=== PATIENT | male | born 1970 | race Caucasian/White ===

== ENCOUNTER 2020-03-22 18:19 | Inpatient (IN) | payer BC, OTHER, SELFPAY ==
[2020-03-22] MEDS ORDERED: Cefepime 2 GM VIAL ONE (18:46)
[2020-03-22] MEDS ORDERED: Sodium Chloride 0.9% 100 ML ONE (18:46)
--- NOTE | 2020-03-22 18:56 | RAD ---
XR Foot Rt 3 View STANDARD INDICATION: Redness and noted wound to the toe COMPARISON: None. FINDINGS: Bones: There is small cortical lucency involving the dorsal medial aspect of the right great toe dist al phalangeal base suspicious for early changes of osteomyelitis. This is adjacent to a soft tissue wound. Joints: Joints spaces appear preserved. Lisfranc alignment: Lisfranc alignment appears within normal limits. Soft tissues: There is soft tissue swelling the right great toe. There is a wound overlying the media l and dorsal aspect of the right great toe without a radiopaque foreign body. IMPRESSION: Cortical osteolysis involving the dorsal medial aspect of the great toe distal phalangeal base suspicious for changes of early osteomyelitis. This is adjacent to a soft tissue wound of the medial dorsal aspect of the right great toe. There is diffuse soft tissue swelling of the right great toe.
[2020-03-22 19:01] LABS: #Eosinphils 0.1 thou/uL (0.0-0.7); #Lymphocytes 1.6 thou/uL (1.20-3.40); #Monocytes 1.1 thou/uL (0.11-0.59); #Neutrophils 9.4 thou/uL (1.40-6.50); %Basophils 0.1 % (0.0-1.0); %Eosinophils 0.5 % (0.0-10.0); %Lymphocytes 13.3 % (21.0-51.0); %Monocytes 8.7 % (0.0-10.0); %Neutrophils 77.4 % (42.0-75.0); Hemoglobin 16.6 g/dL (14.0-18.0); Mean Corpuscular HGB CONC 35.8 g/dL (32.0-36.0); Mean Corpuscular Hemoglobin 31.7 pg (27.0-31.0); Mean Corpuscular Volume 88.7 fL (78.0-98.0); Mean Platelet Volume 7.3 fL (7.4-10.4); Platelet Count 272 thou/uL (130-400); Red Blood Cell (RBC) Count 5.23 mill/uL (4.70-6.10); White Blood Cell (WBC) Count 12.2 thou/uL (4.8-10.8)
[2020-03-22 19:22] LABS: ALT (SGPT) 21 U/L (8-55); AST (SGOT) 19 U/L (5-34); Albumin 3.9 g/dL (3.5-5.0); Alkaline Phosphatase 79 U/L (40-110); Anion Gap 16 mmol/L (10-20); BUN (Urea Nitrogen) 14 mg/dL (8.9-20.6); Bilirubin, Total 0.4 mg/dL (0.2-1.2); Calc. Creatinine Clearance 0 mL/min (70-130); Calcium 9.8 mg/dL (7.8-10.44); Carbon Dioxide 22 mmol/L (22-29); Chloride 93 mmol/L (98-107); Estimated GFR-MDRD 79; Globulin 4.2 g/dL (2.4-3.5); Glucose 291 mg/dL (70-105); Potassium 4.3 mmol/L (3.5-5.1); Protein, Total 8.1 g/dL (6.0-8.3); Sodium 127 mmol/L (136-145)
[2020-03-22] MEDS ORDERED: Vancomycin 1 GM/200 ML BAG ONE (19:26)
[2020-03-22 19:38] LABS: Bilirubin Negative (Negative); Blood, Urine Negative (Negative); Clarity Clear (Clear); Glucose, Urine (Dipstick) Greater than 1000 mg/dL (Negative); Ketone, Urine Trace mg/dL (Negative); Leukocyte Negative Leu/uL (Negative); Nitrite Negative (Negative); Protein, Urine (Dipstick) Negative (Neg-Trace); Specific Gravity, Urine 1.021 (1.002-1.036); Urobilinogen Normal mg/dL (Less than 2); pH, Urine 5.5 (5.0-9.0)
[2020-03-22] MEDS ORDERED: Acetaminophen 650 MG Suppository PR PRN (19:51)
[2020-03-22] MEDS ORDERED: HYDROcodone/Acetaminophen 7.5/325 mg Tablet PO PRN ×2 (19:51)
[2020-03-22] MEDS ORDERED: Acetaminophen 325 MG TAB PO PRN (19:51)
[2020-03-22] MEDS ORDERED: Calcium Carbonate 500 MG ChewTAB PO PRN (19:51)
--- NOTE | 2020-03-22 20:07 | PDOC.HHP ---
Hospitalist HPI - History of Present Illness dizziness wekaness History of Present Illness: Case of an 49y/o male with apparent no pmx who comes to hospital due to weakness and dizzyness patient states he was on his usual state of health until yesterday when he started with the symptoms, which where also accompanied with nausea vomiting and chills. patient also with an obvious soft tissues infection of his right foot which is the likely source of his symptoms. he states that little over a week he notice what he though was a bite that has been worsening since then, he refers he trated with water soap and topical abx but kept getting worse. denies fever dysuria diarrhe cough or sob Hospitalist ROS - Review of Systems All other systems reviewed; all pertinent +/- noted in HPI/Subj Hospitalist History - Past Surgical History Other Surgical History: b/l arm repair after accident - Family History Family History: reports: cancer, diabetes mellitus - Social History Smoking Status: Current every day smoker Alcohol: reports: Heavy Drugs: reports: marijuana Living Situation: With Family - Exam General Appearance: NAD, awake alert Eye: PERRL, anicteric sclera ENT: normocephalic atraumatic, no oropharyngeal lesions Neck: supple, symmetric, no JVD, no thyromegaly Heart: RRR, no murmur, no gallops, no rubs Respiratory: CTAB, no wheezes, no rales Gastrointestinal: soft, non-tender, non-distended Extremities: no cyanosis, no clubbing, no edema Extremities - other findings: R foot great toe with purulent secretion erythema tender and increase temp Skin: normal turgor, no lesions, no rashes Neurological: cranial nerve grossly intact, normal sensation to touch Musculoskeletal: normal tone, normal strength, no muscle wasting Psychiatric: normal affect, normal behavior, A&O x 3 Hospitalist Results - Labs Result Diagrams: 03/22/20 18:46 03/22/20 18:46 Lab results: WBC 12.2 thou/uL (4.8-10.8) H 03/22/20 18:46 Hgb 16.6 g/dL (14.0-18.0) 03/22/20 18:46 Hct 46.3 % (42.0-52.0) 03/22/20 18:46 MCV 88.7 fL (78.0-98.0) 03/22/20 18:46 Plt Count 272 thou/uL (130-400) 03/22/20 18:46 Neutrophils % 77.4 % (42.0-75.0) H 03/22/20 18:46 ESR Westergren 59 mm/hr (Less than 20) H 03/22/20 18:46 Sodium 127 mmol/L (136-145) L 03/22/20 18:46 Potassium 4.3 mmol/L (3.5-5.1) 03/22/20 18:46 Chloride 93 mmol/L (98-107) L 03/22/20 18:46 Carbon Dioxide 22 mmol/L (22-29) 03/22/20 18:46 BUN 14 mg/dL (8.9-20.6) 03/22/20 18:46 Creatinine 1.00 mg/dL (0.7-1.3) 03/22/20 18:46 Glucose 291 mg/dL (70-105) H 03/22/20 18:46 Lactic Acid 1.9 mmol/L (0.5-2.2) 03/22/20 18:46 Calcium 9.8 mg/dL (7.8-10.44) 03/22/20 18:46 Total Bilirubin 0.4 mg/dL (0.2-1.2) 03/22/20 18:46 AST 19 U/L (5-34) 03/22/20 18:46 ALT 21 U/L (8-55) 03/22/20 18:46 Alkaline Phosphatase 79 U/L (40-110) 03/22/20 18:46 C-Reactive Protein 7.41 mg/dL (= or < 0.5) H 03/22/20 18:46 Serum Total Protein 8.1 g/dL (6.0-8.3) 03/22/20 18:46 Albumin 3.9 g/dL (3.5-5.0) 03/22/20 18:46 Urine Ketones Trace mg/dL (Negative) A 03/22/20 19:16 Urine Blood Negative (Negative) 03/22/20 19:16 Urine Nitrite Negative (Negative) 03/22/20 19:16 Ur Leukocyte Esterase Negative Idalmis/uL (Negative) 03/22/20 19:16 Hospitalist H&P A/P - Problem (1) Cellulitis of great toe, right Code(s): L03.031 - CELLULITIS OF RIGHT TOE Status: Acute (2) Elevated blood pressure Code(s): I10 - ESSENTIAL (PRIMARY) HYPERTENSION Status: Acute (3) Hyperglycemia Code(s): R73.9 - HYPERGLYCEMIA, UNSPECIFIED Status: Acute - Plan Plan: 49y/o male who reports no pmhx who present with r toe cellulitis and possible OM R toe cellulitis - significant toe cellulitis - started on cefepimen + vanc - foot xr suggestive of OM, will get MRI - ID consulted - podiatry consulted - continue ivfs - pain management hyperglycemia - likely has unDx DM - sugars in the 300s likely has considerable insulin resistance - will order ah1c, lipid panel - long acting insulin - aac+ ss - consider starting statin if DM is confirmed htn - blood pressure in the 170s, likely undx htn will start lisinopril and amlodipine alcohol abuse - ase protocol smoker -advised to quit n/v - symptomatic tx prn
[2020-03-22] MEDS ORDERED: Lorazepam 2 MG/ML VIAL SLOW IVP PRN (21:48)
[2020-03-22] MEDS ORDERED: Thiamine HCl 200 MG/2 ML VIAL IM SCH (22:00)
[2020-03-22] MEDS ORDERED: Dextrose 5% in Water 1,000 ML IV PRN (22:11)
[2020-03-22] MEDS ORDERED: Dextrose 50% Abboject 50 ML SYRINGE SLOW IVP PRN (22:11)
[2020-03-22] MEDS: Sodium Chloride 0.9% 1,000 ML IV SCH (22:25)
[2020-03-22] MEDS ORDERED: Insulin Glargine 10 UNITS in Pre-Filled Syringe 1 EACH SC SCH (22:45)
[2020-03-22 22:52] VITALS: BMI 28.3
[2020-03-22] MEDS: HumaLOG 300 UNITS/3 ML VIAL SC PRN (23:25)
[2020-03-23] MEDS: Vancomycin HCl 1.25 GM in Sodium Chloride 0.9% 250 ML 250 ML IVPB SCH ×2 (05:34→17:27)
[2020-03-23] MEDS: HumaLOG 300 UNITS/3 ML VIAL SC PRN ×3 (05:38→20:12)
[2020-03-23] MEDS ORDERED: Cefepime 2 GM in Sodium Chloride 0.9% 100 ML IVPB SCH (06:00)
[2020-03-23 07:01] LABS: Band 4 % (5-11); Eosinophils 2 % (0-10); Hemoglobin 14.8 g/dL (14.0-18.0); Lymphocytes 20 % (21-51); MDiff Complete? YES; Mean Corpuscular Hemoglobin 31.2 pg (27.0-31.0); Mean Corpuscular Volume 89.2 fL (78.0-98.0); Mean Platelet Volume 7.1 fL (7.4-10.4); Monocytes 11 % (0-10); Neutrophil 58 % (42-75); Platelet Count 230 thou/uL (130-400); Platelet Morphology Comment Appears Adequate; RBC Distribution Width 11.9 % (11.5-14.5); Reactive Lymphocytes 4 % (0-10); Red Blood Cell (RBC) Count 4.75 mill/uL (4.70-6.10)
[2020-03-23 07:11] LABS: Hemoglobin A1c 9.2 % (4.0-6.0)
[2020-03-23 07:15] LABS: ALT (SGPT) 19 U/L (8-55); AST (SGOT) 18 U/L (5-34); Albumin 3.4 g/dL (3.5-5.0); Alkaline Phosphatase 65 U/L (40-110); Anion Gap 15 mmol/L (10-20); BUN (Urea Nitrogen) 9 mg/dL (8.9-20.6); Bilirubin, Total 0.4 mg/dL (0.2-1.2); Calc. Creatinine Clearance 129 mL/min (70-130); Carbon Dioxide 20 mmol/L (22-29); Cardiac Risk 4.6 (Less than 4.5); Chloride 101 mmol/L (98-107); Cholesterol 133 mg/dl (< 200 Desired); Estimated GFR-MDRD Greater than 90; Globulin 3.4 g/dL (2.4-3.5); Glucose 167 mg/dL (70-105); HDL Cholesterol 29 mg/dL (>60 Neg Risk); LDL Cholesterol, Calculated 77 mg/dL; Potassium 4.2 mmol/L (3.5-5.1); Protein, Total 6.8 g/dL (6.0-8.3); Sodium 132 mmol/L (136-145); Triglycerides 134 mg/dL (Less than 150)
[2020-03-23] MEDS: Sodium Chloride 0.9% 1,000 ML IV SCH ×2 (09:16→17:14)
[2020-03-23] MEDS: Amlodipine 5 MG TAB PO SCH (09:17)
[2020-03-23] MEDS: Enoxaparin Sodium 40 MG/0.4 ML SYRINGE SC SCH (09:17)
[2020-03-23] MEDS: Folic Acid 1 MG TAB PO SCH (09:18)
[2020-03-23] MEDS: Multivitamin W/ Minerals 1 TAB PO SCH (09:18)
[2020-03-23] MEDS: Magnesium Oxide 400 MG TAB PO SCH (09:18)
[2020-03-23] MEDS: Lisinopril 10 MG TAB PO SCH (09:18)
[2020-03-23] MEDS: Thiamine 100 MG TAB PO SCH (09:18)
[2020-03-23] MEDS: Piperacillin/Tazobactam 3.375 GM in Sodium Chloride 0.9% 100 ML IVPB SCH ×3 (11:45→23:28)
--- NOTE | 2020-03-23 15:04 | PDOC.HOSPP ---
- Subjective Encounter Date: 03/23/20 Encounter Time: 10:00 Subjective: no pain in his right foot, is able to move his foot says he drinks 6 pack beer daily no fever, is awake and oriented this morning - Objective Vital Signs & Weight: Vital Signs (12 hours) Temp Pulse Resp BP BP Pulse Ox 03/23/20 12:00 142/81 H 03/23/20 08:00 146/83 H 95 03/23/20 07:24 98.2 F 75 18 146/83 H 95 03/23/20 04:00 97.9 F 76 20 137/83 137/83 98 Weight Admit Weight 175 lb 9.6 oz Weight 175 lb 9.6 oz Result Diagrams: 03/23/20 06:04 03/23/20 06:04 Additional Labs: Accuchecks 03/23/20 03/23/20 03/22/20 12:13 04:50 22:33 POC Glucose 206 H 187 H 222 H Hospitalist ROS - Medication Medications: Active Medications Generic Name Dose Route Start Last Admin Trade Name Freq PRN Reason Stop Dose Admin Acetaminophen 650 mg 03/22/20 19:51 03/22/20 22:27 Acetaminophen 325 Mg Tab PO 650 mg Q4H PRN Administration Headache/Fever/Mild Pain (1-3) Amlodipine Besylate 5 mg 03/23/20 09:00 03/23/20 09:17 Amlodipine 5 Mg Tab PO 5 mg DAILY SADIE Administration Enoxaparin Sodium 40 mg 03/23/20 09:00 03/23/20 09:17 Enoxaparin Sodium 40 Mg/0.4 Ml Syringe SC 40 mg 0900 SADIE Administration Folic Acid 1 mg 03/23/20 09:00 03/23/20 09:18 Folic Acid 1 Mg Tab PO 1 mg DAILY SADIE Administration Sodium Chloride 1,000 mls @ 100 mls/hr 03/22/20 20:00 03/23/20 09:16 Normal Saline 0.9% IV 1,000 mls .Q10H SADIE Administration Vancomycin HCl 1.25 gm/ Sodium 250 mls @ 166.667 mls/hr 03/23/20 06:00 03/23/20 05:34 Chloride IVPB 250 mls 0600,1800 SADIE Administration Piperacillin Sod/Tazobactam 100 mls @ 200 mls/hr 03/23/20 12:00 03/23/20 11:45 Sod 3.375 gm/ Sodium Chloride IVPB 100 mls Q6HR SADIE Administration Insulin Human Lispro 0 units 03/22/20 22:11 03/23/20 12:16 Humalog 300 Units/3 Ml Vial SC 4 unit .MODERATE SLIDING SC PRN Administration Moderate Correctional Scale Insulin Human Lispro 0 units 03/22/20 23:30 03/22/20 23:25 Humalog 300 Units/3 Ml Vial SC 2 unit .BEDTIME SLIDING SC PRN Administration BEDTIME SLIDING SCALE Protocol Iron/Minerals/Multivitamins 1 tab 03/23/20 09:00 03/23/20 09:18 Multivitamin W/ Minerals 1 Tab PO 1 tab DAILY SADIE Administration Lisinopril 10 mg 03/23/20 09:00 03/23/20 09:18 Lisinopril 10 Mg Tab PO 10 mg DAILY SADIE Administration Magnesium Oxide 400 mg 03/23/20 09:00 03/23/20 09:18 Magnesium Oxide 400 Mg Tab PO 400 mg DAILY SADIE Administration Thiamine HCl 100 mg 03/23/20 09:00 03/23/20 09:18 Thiamine 100 Mg Tab PO 100 mg DAILY SADIE Administration - Exam General Appearance: awake alert Eye: PERRL, anicteric sclera ENT: no oropharyngeal lesions, moist mucosa Neck: supple, no JVD Heart: RRR, no murmur Respiratory: no wheezes, no rales, rhonchi Gastrointestinal: soft, non-tender, non-distended, normal bowel sounds Extremities - other findings: right toe has foul smelling ulcer with purulence Neurological: cranial nerve grossly intact, no focal deficits Psychiatric: A&O x 3 Hosp A/P (1) Osteomyelitis of great toe of right foot Code(s): M86.9 - OSTEOMYELITIS, UNSPECIFIED Status: Acute (2) Diabetic ulcer of right foot Code(s): E11.621 - TYPE 2 DIABETES MELLITUS WITH FOOT ULCER; L97.519 - NON-PRS CHRONIC ULCER OTH PRT RIGHT FOOT W UNSP SEVERITY Status: Acute Qualifiers: Diabetic foot ulcer location: toe Diabetes mellitus type: type 2 Non- pressure ulcer stage: with bone involvement without evidence of necrosis Qualified Code(s): E11.621 - Type 2 diabetes mellitus with foot ulcer; L97.516 - Non-pressure chronic ulcer of other part of right foot with bone involvement without evidence of necrosis (3) DM type 2 (diabetes mellitus, type 2) Status: Acute Qualifiers: Diabetes mellitus ldr rn insulin use: without nursing home use (4) HTN (hypertension) Code(s): I10 - ESSENTIAL (PRIMARY) HYPERTENSION Status: Acute Qualifiers: Hypertension type: essential hypertension Qualified Code(s): I10 - Essential (primary) hypertension (5) Alcohol abuse Code(s): F10.10 - ALCOHOL ABUSE, UNCOMPLICATED Status: Chronic (6) Tobacco abuse Code(s): Z72.0 - TOBACCO USE Status: Chronic - Plan is on vanc and zosyn d/w for surg consult, will likely need amp of gr toe/debridement ase protocol for alc abuse contnue iv fluids, lisinopril, lantus and norvasc hemostable now is npo for possible surgery
[2020-03-23] MEDS ORDERED: Magnevist 469MG/ML 20 ML VIAL ONE (15:33)
--- NOTE | 2020-03-23 17:01 | CON ---
DATE OF CONSULTATION: REASON: Right first toe osteomyelitis. HISTORY OF PRESENT ILLNESS: A 49-year-old whom I had seen in the past for right upper extremity inflammatory process and now developed an inflammatory process in the right first toe. 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 There was foul odor noticeable as well, had some chills, general malaise. No headaches and no visual symptoms, sore throat, odynophagia, dysphagia. He knew to be diabetic. He describes as it is as "borderline diabetic." Had some nausea. On arrival, his findings included BP 180/85, pulse 111, temperature 98.9, the saturations were 95% on room air. There is an obvious inflammatory process in right first toe with discoloration, evidence of abscess in the medial aspect, necrosis, foul odor, erythema. MRI shows findings consistent with osteomyelitis at the distal phalanx. The official reading is still pending. Plain films also demonstrate some osteolysis at the distal phalanx. Currently, he is awake and alert. He does not have much sensation in lower extremities. No headaches, visual symptoms, sore throat, odynophagia, dysphagia. No cough, sputum production, or chest pain. No abdominal pain or diarrhea. No genitourinary symptoms. No other joint symptoms. No neurological symptoms. PAST MEDICAL HISTORY: Type 2 diabetes, prior injury to the right upper extremity with fracture which was repaired in the past. FAMILY HISTORY: Cancer, diabetes type 2. SOCIAL HISTORY: Current smoker. He used to drink heavily about 8 beers a day. 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 Lives by himself reportedly. ALLERGIES: NONE. MEDICATIONS: 1. Norvasc. 2. Lovenox. 3. Insulin. 4. Vitamins. 5. Zestril. 6. Zosyn. 7. Vancomycin. PHYSICAL EXAMINATION: VITAL SIGNS: T-max 98.2, BP 140/83, heart rate 75, O2 saturation 95. SKIN: Shows the right first toe with areas of necrosis, medial aspect swelling, evidence of purulence under the skin, foul odor. No lymphadenopathy. HEENT: Ocular movements conjugate. Oral cavity, normal. NECK: Supple. LUNGS: Symmetric, clear breath sounds. HEART: S1, S2, regular rate. No S3, S4. ABDOMEN: Soft, not distended or tender. No ascites. No organomegaly. No bladder distention. EXTREMITIES: No joint inflammatory activity outside the involved area. Pulses are excellent in lower extremities as well as cap refill. Moves extremities equally with no limitations. NEUROLOGIC: Cognitive function, he is awake, alert, oriented. Speech appears to be normal. Recollection normal. LABORATORY DATA: Sodium 132, creatinine 0.77. Liver profile normal. Albumin 3.4. White cell count is 12.2 and 8.0, hemoglobin 14.8, platelets 230, 58% neutrophils, 20% lymphocytes. Urinalysis remarkable for glycosuria as expected. Two sets of blood culture, no growth thus far. IMAGING STUDIES: As described above. ASSESSMENT: Type 2 diabetes, untreated, with neuropathy and ulcer of the medial aspect of the right first toe distal aspect associated with osteomyelitis and necrosis. DISCUSSION: The patient is going to have surgical evaluation and debridement with potential amputation of the toe. Cultures need to be submitted from the specimen and then we can arrange for the outpatient therapy. It is essential to get microbiology information from the specimen so we can properly decide on oral versus IV antimicrobial therapy. Thus far, it has not been shown to be bacteremic. Job ID: [id number]
--- NOTE | 2020-03-23 17:46 | PDOC.GSCN ---
Surgery Consult: HPI - Consult details Date: 03/23/20 Time: 13:15 Reason for consult: wound care History of present illness: 03/23/20 17:44 -year-old male who presented to the emergency department with complaints of dizziness and weakness. He also complained of an ulceration of his right great toe. The patient states that the ulcer has been present, but he just noticed it. He noticed that it is malodorous. It is nontender; however, he does have symptoms of peripheral neuropathy. Of note, the patient reports that he is a early diabetic.He endorses nausea, vomiting, and chills. 03/23/20 17:46 03/23/20 17:47 He was noted to be intoxicated at presentation. Surgery Consult: ROS - Review of Systems All systems: 10 systems reviewed and no additional complaints unless stated below. Constitutional: reports: as per HPI, weakness Surgery Consult: [facility] Past Medical History: diabetes mellitus Alcohol abuse Past Surgical History: bilateral arm surgery after trauma. Specifics unknown. - Past Family History Pertinent family history: Diabetes Cancer - Past Social History Smoking Status: Current every day smoker Alcohol Use: other (Reported to be intoxicated upon presentation and drinks 5+ drinks per day) Drug Use History: none Living Situation: independent Surgery Consult: Exam - Vital signs Vital signs: Vital Signs - Most Recent Temp Pulse Resp BP Pulse Ox 98.9 F 76 18 140/75 98 03/23/20 17:25 03/23/20 17:25 03/23/20 17:25 03/23/20 17:25 03/23/20 17:25 - Physical Exam General: moderate distress (appears in generally poor health), no distress, severe distress, well developed, well nourished ENT: no congestion, no hearing loss, normal mucosa, normal nares, normal pinna Neck: no bruits, no lymphadectomy, no masses, no dorie distention, trachea midline Respiratory: normal expansion, normal respiratory effort Abdomen: soft, tender Integumentary: no abnormal pigmentation, no growths, no rash Neurologic: normal coordination, normal sensation Musculoskeletal: other (1.5cm ulcer in medial aspect of right great toe. Superficial necrosis with minimal discharge. Surrounding erythema seems improved from wound care photos yesterday.) Psychiatric: memory intact, oriented to time, oriented to person, oriented to place, speech is normal Surgery Consult: Meds - Medications Medications: Current Medications Acetaminophen (Acetaminophen 325 Mg Tab) 650 mg PO Q4H PRN PRN Reason: Headache/Fever/Mild Pain (1-3) Last Admin: 03/22/20 22:27 Dose: 650 mg Documented by: Acetaminophen (Acetaminophen 650 Mg Suppository) 650 mg NC Q4H PRN PRN Reason: Headache/Fever/Mild Pain (1-3) Hydrocodone Bitart/Acetaminophen (Hydrocodone/Acetaminophen 7.5/325 Mg Tablet) 1 tab PO Q4H PRN PRN Reason: Moderate Pain (4-6) Hydrocodone Bitart/Acetaminophen (Hydrocodone/Acetaminophen 7.5/325 Mg Tablet) 2 tab PO Q4H PRN PRN Reason: Severe Pain (7-10) Amlodipine Besylate (Amlodipine 5 Mg Tab) 5 mg PO DAILY [facility] Last Admin: 03/23/20 09:17 Dose: 5 mg Documented by: Calcium Carbonate (Calcium Carbonate 500 Mg Chewtab) 1,000 mg PO Q4H PRN PRN Reason: Heartburn or Indigestion Dextrose/Water (Dextrose 50% Abboject 50 Ml Syringe) 25 gm SLOW IVP PRN PRN PRN Reason: Hypoglycemia Enoxaparin Sodium (Enoxaparin Sodium 40 Mg/0.4 Ml Syringe) 40 mg SC 0900 [facility] Last Admin: 03/23/20 09:17 Dose: 40 mg Documented by: Folic Acid (Folic Acid 1 Mg Tab) 1 mg PO DAILY [facility] Last Admin: 03/23/20 09:18 Dose: 1 mg Documented by: Glucagon (Glucagon 1 Mg/Ml Vial) 1 mg IM PRN PRN PRN Reason: Hypoglycemia Sodium Chloride (Normal Saline 0.9%) 1,000 mls @ 100 mls/hr IV .Q10H [facility] Last Admin: 03/23/20 17:14 Dose: 1,000 mls Documented by: Dextrose/Water (D5w) 1,000 mls @ 0 mls/hr IV .Q0M PRN PRN Reason: Hypoglycemia Insulin Glargine 10 units/ (Miscellaneous Medication) 0.1 mls @ 0 mls/hr SC [facility] Vancomycin HCl 1.25 gm/ Sodium (Chloride) 250 mls @ 166.667 mls/hr IVPB 0600,1800 [facility] Last Admin: 03/23/20 17:27 Dose: 250 mls Documented by: Piperacillin Sod/Tazobactam (Sod 3.375 gm/ Sodium Chloride) 100 mls @ 200 mls/hr IVPB Q6HR [facility] Last Admin: 03/23/20 17:14 Dose: 100 mls Documented by: Insulin Human Lispro (Humalog 300 Units/3 Ml Vial) 0 units SC .MODERATE SLIDING SC PRN PRN Reason: Moderate Correctional Scale Last Admin: 03/23/20 12:16 Dose: 4 unit Documented by: Insulin Human Lispro (Humalog 300 Units/3 Ml Vial) 0 units SC .BEDTIME SLIDING SC PRN; Protocol PRN Reason: BEDTIME SLIDING SCALE Last Admin: 03/22/20 23:25 Dose: 2 unit Documented by: Iron/Minerals/Multivitamins (Multivitamin W/ Minerals 1 Tab) 1 tab PO DAILY [facility] Last Admin: 03/23/20 09:18 Dose: 1 tab Documented by: Lisinopril (Lisinopril 10 Mg Tab) 10 mg PO DAILY [facility] Last Admin: 03/23/20 09:18 Dose: 10 mg Documented by: Lorazepam (Lorazepam 2 Mg/Ml Vial) 1 mg SLOW IVP Q4H PRN PRN Reason: Anxiety/Agitation Magnesium Oxide (Magnesium Oxide 400 Mg Tab) 400 mg PO DAILY [facility] Last Admin: 03/23/20 09:18 Dose: 400 mg Documented by: Miscellaneous (Abstinence Symptom Evaluation Orders (Ase)) 1 each FS ONE [facility] Stop: 04/01/20 22:01 Miscellaneous Medication (Pharmacy To Dose Vancomycin) 1 each IVPB PRN PRN PRN Reason: Pharmacy to dose Sodium Chloride (Flush - Normal Saline 10 Ml Syringe) 10 ml IVF PRN PRN PRN Reason: Saline Flush Thiamine HCl (Thiamine 100 Mg Tab) 100 mg PO DAILY [facility] Last Admin: 03/23/20 09:18 Dose: 100 mg Documented by: - Allergies Allergies/Adverse Reactions: Allergies Allergy/AdvReac Type Severity Reaction Status Date / Time No Known Allergies Allergy Verified 03/22/20 22:48 Surgery Consult: Results - Labs Result Diagrams: 03/23/20 06:04 03/23/20 06:04 Lab results: Laboratory Results WBC 8.0 thou/uL (4.8-10.8) 03/23/20 06:04 RBC 4.75 mill/uL (4.70-6.10) 03/23/20 06:04 Hgb 14.8 g/dL (14.0-18.0) 03/23/20 06:04 Hct 42.4 % (42.0-52.0) 03/23/20 06:04 MCV 89.2 fL (78.0-98.0) 03/23/20 06:04 MCH 31.2 pg (27.0-31.0) H 03/23/20 06:04 MCHC 35.0 g/dL (32.0-36.0) 03/23/20 06:04 RDW 11.9 % (11.5-14.5) 03/23/20 06:04 Plt Count 230 thou/uL (130-400) 03/23/20 06:04 MPV 7.1 fL (7.4-10.4) L 03/23/20 06:04 Neutrophils % 77.4 % (42.0-75.0) H 03/22/20 18:46 Neutrophils % (Manual) 58 % (42-75) 03/23/20 06:04 Band Neuts % (Manual) 4 % (5-11) L 03/23/20 06:04 Lymphocytes % 13.3 % (21.0-51.0) L 03/22/20 18:46 Lymphocytes % (Manual) 20 % (21-51) L 03/23/20 06:04 Reactive Lymphs % 4 % (0-10) 03/23/20 06:04 Monocytes % 8.7 % (0.0-10.0) 03/22/20 18:46 Monocytes % (Manual) 11 % (0-10) H 03/23/20 06:04 Eosinophils % 0.5 % (0.0-10.0) 03/22/20 18:46 Eosinophils % (Manual) 2 % (0-10) 03/23/20 06:04 Basophils % 0.1 % (0.0-1.0) 03/22/20 18:46 Basophils % (Manual) 1 % (0-2) 03/23/20 06:04 Neutrophils # 9.4 thou/uL (1.40-6.50) H 03/22/20 18:46 Lymphocytes # 1.6 thou/uL (1.20-3.40) 03/22/20 18:46 Monocytes # 1.1 thou/uL (0.11-0.59) H 03/22/20 18:46 Eosinophils # 0.1 thou/uL (0.0-0.7) 03/22/20 18:46 Basophils # 0.0 thou/uL (0.0-0.2) 03/22/20 18:46 Plt Morphology Comment Appears Adequate 03/23/20 06:04 ESR Westergren 59 mm/hr (Less than 20) H 03/22/20 18:46 Sodium 132 mmol/L (136-145) L 03/23/20 06:04 Potassium 4.2 mmol/L (3.5-5.1) 03/23/20 06:04 Chloride 101 mmol/L (98-107) 03/23/20 06:04 Carbon Dioxide 20 mmol/L (22-29) L 03/23/20 06:04 Anion Gap 15 mmol/L (10-20) 03/23/20 06:04 BUN 9 mg/dL (8.9-20.6) 03/23/20 06:04 Creatinine 0.77 mg/dL (0.7-1.3) 03/23/20 06:04 Estimated GFR (MDRD) Greater than 90 03/23/20 06:04 Glucose 167 mg/dL (70-105) H 03/23/20 06:04 POC Glucose 120 mg/dL (70-100) H 03/23/20 16:46 Hemoglobin A1c 9.2 % (4.0-6.0) H 03/23/20 06:04 Lactic Acid 1.9 mmol/L (0.5-2.2) 03/22/20 18:46 Calcium 9.0 mg/dL (7.8-10.44) 03/23/20 06:04 Total Bilirubin 0.4 mg/dL (0.2-1.2) 03/23/20 06:04 AST 18 U/L (5-34) 03/23/20 06:04 ALT 19 U/L (8-55) 03/23/20 06:04 Alkaline Phosphatase 65 U/L (40-110) 03/23/20 06:04 C-Reactive Protein 7.41 mg/dL (= or < 0.5) H 03/22/20 18:46 Serum Total Protein 6.8 g/dL (6.0-8.3) 03/23/20 06:04 Albumin 3.4 g/dL (3.5-5.0) L 03/23/20 06:04 Globulin 3.4 g/dL (2.4-3.5) 03/23/20 06:04 Albumin/Globulin Ratio 1.0 g/dL (1.2-2.2) L 03/23/20 06:04 Triglycerides 134 mg/dL (Less than 150) 03/23/20 06:04 Cholesterol 133 mg/dl (< 200 Desired) 03/23/20 06:04 LDL Cholesterol, Calc 77 mg/dL 03/23/20 06:04 HDL Cholesterol 29 mg/dL (>60 Neg Risk) 03/23/20 06:04 Heart Disease Risk Ratio 4.6 (Less than 4.5) 03/23/20 06:04 Urine Color Light-Yellow (Yellow) 03/22/20 19:16 Urine Clarity Clear (Clear) 03/22/20 19:16 Urine pH 5.5 (5.0-9.0) 03/22/20 19:16 Ur Specific [place] 1.021 (1.002-1.036) 03/22/20 19:16 Urine Protein Negative mg/dL (Neg-Trace) 03/22/20 19:16 Urine Glucose (UA) Greater than 1000 mg/dL (Negative) A 03/22/20 19:16 Urine Ketones Trace mg/dL (Negative) A 03/22/20 19:16 Urine Blood Negative (Negative) 03/22/20 19:16 Urine Nitrite Negative (Negative) 03/22/20 19:16 Urine Bilirubin Negative (Negative) 03/22/20 19:16 Urine Urobilinogen Normal mg/dL (Less than 2) 03/22/20 19:16 Ur Leukocyte Esterase Negative Idalmis/uL (Negative) 03/22/20 19:16 - Radiology Interpretation Other Additional comments: X-ray of the foot reviewed. Demonstrates soft tissue swelling and mild osteolysis of the base of the distal phalange concerning for osteomyelitis. Surgery Consult: A/P - Problem (1) Diabetic ulcer of right foot Current Visit: Yes Code(s): E11.621 - TYPE 2 DIABETES MELLITUS WITH FOOT ULCER; L97.519 - NON-PRS CHRONIC ULCER OTH PRT RIGHT FOOT W UNSP SEVERITY Status: Acute Qualifiers: Diabetic foot ulcer location: toe Diabetes mellitus type: type 2 Non- pressure ulcer stage: with bone involvement without evidence of necrosis Qualified Code(s): E11.621 - Type 2 diabetes mellitus with foot ulcer; L97.516 - Non-pressure chronic ulcer of other part of right foot with bone involvement w ithout evidence of necrosis - Plan Plan: MRI pending. Will follow up Continue antibiotics per ID recommendations. Diabetes management per hospitalist service. Recommend wound care for bedside debridement and cultures. Should be amendable to wound care and antibiotic therapy. No surgical intervention planned at this point. Will continue to follow.
--- NOTE | 2020-03-23 19:39 | MRI ---
MRI OF THE RIGHT FOREFOOT WITH AND WITHOUT IV CONTRAST: 03/23/20 PROVIDED CLINICAL HISTORY: Redness and swelling involving the great toe. FINDINGS: There is cutaneous irregularity and signal alteration involving the subcutaneous adipose layer at the medial aspect of the great toe at its plantar surface, compatible with wound. There is nonenhancemen t of the tissue in this region compatible with tissue devitalization. There is increased signal intensity on fluid sensitive sequence and decreased signal intensity on T1 weighted sequences involving the great toe distal phalanx with associated contrast enhancement. There is less conspicuous signal change within the distal aspects of the great toe proximal phalanx. Regional marrow signal appears otherwise normal. There is no significant regional tenosynovial fluid evident. No regional joint effusion is evident. Signal alteration involving the intrinsic foot muscul ature diffusely typical for diabetic patients. No localized signal change to suggest infectious myosi tis. The dorsal extensor and plantar flexor tendons appear intact as visualized. IMPRESSION: 1. Findings compatible with osteomyelitis involving the treat toe distal phalanx. Reactive ostei tis versus early osteomyelitis involving the distal aspects of the great toe proximal phalanx. 2. Signal changes involving the adjacent subcutaneous adipose layer at the plantar-medial aspect of the great toe suggesting tissue devitalization. POS: CHOLO
[2020-03-23] MEDS ORDERED: Insulin Glargine 10 UNITS in Pre-Filled Syringe 1 EACH SC SCH (21:00)
[2020-03-24] MEDS: Sodium Chloride 0.9% 1,000 ML IV SCH ×2 (02:10→13:23)
[2020-03-24 05:23] LABS: Vancomycin, Trough 9.8 ug/mL
[2020-03-24] MEDS: Piperacillin/Tazobactam 3.375 GM in Sodium Chloride 0.9% 100 ML IVPB SCH ×4 (06:10→23:34)
[2020-03-24] MEDS: Vancomycin HCl 1.25 GM in Sodium Chloride 0.9% 250 ML 250 ML IVPB SCH (06:37)
[2020-03-24 07:35] LABS: #Eosinphils 0.1 thou/uL (0.0-0.7); #Lymphocytes 1.5 thou/uL (1.20-3.40); #Monocytes 0.6 thou/uL (0.11-0.59); %Basophils 0.3 % (0.0-1.0); %Eosinophils 0.8 % (0.0-10.0); %Lymphocytes 18.3 % (21.0-51.0); %Monocytes 7.2 % (0.0-10.0); %Neutrophils 73.4 % (42.0-75.0); Hemoglobin 14.9 g/dL (14.0-18.0); Mean Corpuscular HGB CONC 35.4 g/dL (32.0-36.0); Mean Corpuscular Hemoglobin 31.7 pg (27.0-31.0); Mean Corpuscular Volume 89.7 fL (78.0-98.0); Mean Platelet Volume 6.8 fL (7.4-10.4); Platelet Count 230 thou/uL (130-400); RBC Distribution Width 11.9 % (11.5-14.5); Red Blood Cell (RBC) Count 4.71 mill/uL (4.70-6.10); White Blood Cell (WBC) Count 8.1 thou/uL (4.8-10.8)
[2020-03-24 07:49] LABS: Anion Gap 14 mmol/L (10-20); BUN (Urea Nitrogen) 7 mg/dL (8.9-20.6); Calc. Creatinine Clearance 121 mL/min (70-130); Calcium 8.8 mg/dL (7.8-10.44); Carbon Dioxide 24 mmol/L (22-29); Chloride 100 mmol/L (98-107); Estimated GFR-MDRD Greater than 90; Glucose 153 mg/dL (70-105); Potassium 4.2 mmol/L (3.5-5.1); Sodium 134 mmol/L (136-145)
[2020-03-24] MEDS ORDERED: Vancomycin 1.5 GRAM/300 ML BAG 1.5 GM in Premix Bag 1 BAG IVPB SCH (08:00)
[2020-03-24] MEDS: Magnesium Oxide 400 MG TAB PO SCH (08:45)
[2020-03-24] MEDS: Amlodipine 5 MG TAB PO SCH (08:45)
[2020-03-24] MEDS: Thiamine 100 MG TAB PO SCH (08:45)
[2020-03-24] MEDS: Multivitamin W/ Minerals 1 TAB PO SCH (08:45)
[2020-03-24] MEDS: Vancomycin 1.5 GRAM/300 ML BAG 1.5 GM in Premix Bag 1 BAG IVPB SCH ×2 (08:45→19:37)
[2020-03-24] MEDS: Enoxaparin Sodium 40 MG/0.4 ML SYRINGE SC SCH (08:45)
[2020-03-24] MEDS: Folic Acid 1 MG TAB PO SCH (08:45)
[2020-03-24] MEDS: Lisinopril 10 MG TAB PO SCH (08:45)
--- NOTE | 2020-03-24 13:01 | PDOC.HOSPP ---
- Subjective Encounter Date: 03/24/20 Encounter Time: 10:00 Subjective: is sitting in chair, feels better wants to walk in hallway offered nicotine patch, says he would rather smoke than wear a patch is oriented well - Objective Vital Signs & Weight: Vital Signs (12 hours) Temp Pulse Resp BP BP BP Pulse Ox 03/24/20 11:00 98.8 F 88 20 123/70 96 03/24/20 08:00 141/70 H 03/24/20 07:29 98.3 F 70 20 141/70 H 98 03/24/20 05:00 98.4 F 71 18 126/68 97 03/24/20 04:00 126/68 Weight Admit Weight 175 lb 9.6 oz Weight 175 lb 9.6 oz I&O: 03/23/20 03/24/20 03/25/20 07:59 06:59 06:59 Intake Total Balance Result Diagrams: 03/24/20 07:21 03/24/20 07:21 Additional Labs: Accuchecks 03/24/20 03/24/20 03/23/20 11:29 05:05 19:57 POC Glucose 212 H 133 H 272 H 03/23/20 16:46 POC Glucose 120 H Hospitalist ROS - Medication Medications: Active Medications Generic Name Dose Route Start Last Admin Trade Name Freq PRN Reason Stop Dose Admin Acetaminophen 650 mg 03/22/20 19:51 03/22/20 22:27 Acetaminophen 325 Mg Tab PO 650 mg Q4H PRN Administration Headache/Fever/Mild Pain (1-3) Amlodipine Besylate 5 mg 03/23/20 09:00 03/24/20 08:45 Amlodipine 5 Mg Tab PO 5 mg DAILY SADIE Administration Enoxaparin Sodium 40 mg 03/23/20 09:00 03/24/20 08:45 Enoxaparin Sodium 40 Mg/0.4 Ml Syringe SC 40 mg 0900 SADIE Administration Folic Acid 1 mg 03/23/20 09:00 03/24/20 08:45 Folic Acid 1 Mg Tab PO 1 mg DAILY SADIE Administration Piperacillin Sod/Tazobactam 100 mls @ 200 mls/hr 03/23/20 12:00 03/24/20 06:10 Sod 3.375 gm/ Sodium Chloride IVPB 100 mls Q6HR SADIE Administration Vancomycin HCl 1.5 gm/ Device 300 mls @ 200 mls/hr 03/24/20 08:00 03/24/20 08:45 IVPB 300 mls 08,1999 SADIE Administration Insulin Human Lispro 0 units 03/22/20 22:11 03/23/20 12:16 Humalog 300 Units/3 Ml Vial SC 4 unit .MODERATE SLIDING SC PRN Administration Moderate Correctional Scale Insulin Human Lispro 0 units 03/22/20 23:30 03/23/20 20:12 Humalog 300 Units/3 Ml Vial SC 3 unit .BEDTIME SLIDING SC PRN Administration BEDTIME SLIDING SCALE Protocol Iron/Minerals/Multivitamins 1 tab 03/23/20 09:00 03/24/20 08:45 Multivitamin W/ Minerals 1 Tab PO 1 tab DAILY SADIE Administration Lisinopril 10 mg 03/23/20 09:00 03/24/20 08:45 Lisinopril 10 Mg Tab PO 10 mg DAILY SADIE Administration Magnesium Oxide 400 mg 03/23/20 09:00 03/24/20 08:45 Magnesium Oxide 400 Mg Tab PO 400 mg DAILY SADIE Administration Thiamine HCl 100 mg 03/23/20 09:00 03/24/20 08:45 Thiamine 100 Mg Tab PO 100 mg DAILY SADIE Administration - Exam General Appearance: awake alert Eye: PERRL, anicteric sclera ENT: no oropharyngeal lesions, moist mucosa Neck: supple, no JVD Heart: RRR, no murmur Respiratory: no wheezes, no rales, rhonchi Gastrointestinal: soft, non-tender, non-distended, normal bowel sounds Extremities: no cyanosis, no edema Extremities - other findings: right forefoot in dressing Neurological: cranial nerve grossly intact, no focal deficits Psychiatric: A&O x 3 Hosp A/P (1) Osteomyelitis of great toe of right foot Code(s): M86.9 - OSTEOMYELITIS, UNSPECIFIED Status: Acute (2) Diabetic ulcer of right foot Code(s): E11.621 - TYPE 2 DIABETES MELLITUS WITH FOOT ULCER; L97.519 - NON-PRS CHRONIC ULCER OTH PRT RIGHT FOOT W UNSP SEVERITY Status: Acute Qualifiers: Diabetic foot ulcer location: toe Diabetes mellitus type: type 2 Non- pressure ulcer stage: with bone involvement without evidence of necrosis Qualified Code(s): E11.621 - Type 2 diabetes mellitus with foot ulcer; L97.516 - Non-pressure chronic ulcer of other part of right foot with bone involvement without evidence of necrosis (3) DM type 2 (diabetes mellitus, type 2) Status: Acute Qualifiers: Diabetes mellitus jail insulin use: without jail use (4) HTN (hypertension) Code(s): I10 - ESSENTIAL (PRIMARY) HYPERTENSION Status: Acute Qualifiers: Hypertension type: essential hypertension Qualified Code(s): I10 - Essential (primary) hypertension (5) Alcohol abuse Code(s): F10.10 - ALCOHOL ABUSE, UNCOMPLICATED Status: Chronic (6) Tobacco abuse Code(s): Z72.0 - TOBACCO USE Status: Chronic - Plan is on vanc and zosyn for debridement at bedside per surgical consultation note. ase protocol for alc abuse contnue lisinopril, lantus and norvasc hemostable is tolerating oral diet well, off iv fluids. await wound culture results for outp antibiotic choice.
[2020-03-24] MEDS: Nicotine 21 MG PATCH TOP SCH (13:02)
--- NOTE | 2020-03-24 14:10 | PRG ---
DATE OF SERVICE: 03/24/2020 SUBJECTIVE: He is feeling better appetite. No more fever. OBJECTIVE: VITAL SIGNS: His temperature has normalized, BP 120/70, and heart rate 88. GENERAL: The patient has not had any surgical debridement. LUNGS: Clear. HEART: S1 and S2. Regular rate. ABDOMEN: Soft, not distended. No bladder distention. NEURO: Nonfocal. LABORATORY DATA: White cell count 8.1, hemoglobin 14.9, and platelets 230 with 73% neutrophils. Creatinine 0.82. There is a sample from the foot abscess and it is like a swab with gram-positive cocci in clusters and gram-negative rods and gram-positive rods, pending identification. Blood culture, no growth at 48 hours. The MRI read out has been transcribed and showed osteomyelitis great toe distal phalanx, reactive osteitis distal aspects of great toe proximal phalanx. No abscess identified. ASSESSMENT AND DISCUSSION: Type 2 diabetes untreated, neuropathy, ulcer medial aspect of the right first toe, osteomyelitis, and necrosis. Looks like no surgical intervention is planned. At this point, he is going to continue on antimicrobial therapy. I think eventually, he is going to need some form of surgical intervention. We will wait on the microbiology and see if he is going to need IV or oral antimicrobial therapy to be continued. Job ID: [id number]
[2020-03-24] MEDS: HumaLOG 300 UNITS/3 ML VIAL SC PRN ×2 (18:31→19:51)
[2020-03-25 00:12] LABS: SARS-CoV-2 MS2 Positive; SARS-CoV-2 N Gene Negative; SARS-CoV-2 S Gene Negative; SARS-CoV-2 by NAA Not Detected (Not Detected); SARS-CoV-2 orf1ab Negative
[2020-03-25] MEDS: Piperacillin/Tazobactam 3.375 GM in Sodium Chloride 0.9% 100 ML IVPB SCH ×4 (05:22→23:29)
[2020-03-25 06:43] LABS: Anion Gap 13 mmol/L (10-20); BUN (Urea Nitrogen) 8 mg/dL (8.9-20.6); Calc. Creatinine Clearance 124 mL/min (70-130); Calcium 9.1 mg/dL (7.8-10.44); Carbon Dioxide 25 mmol/L (22-29); Chloride 100 mmol/L (98-107); Estimated GFR-MDRD Greater than 90; Glucose 122 mg/dL (70-105); Potassium 3.9 mmol/L (3.5-5.1); Sodium 134 mmol/L (136-145)
[2020-03-25] MEDS: Folic Acid 1 MG TAB PO SCH (09:09)
[2020-03-25] MEDS: Amlodipine 5 MG TAB PO SCH (09:09)
[2020-03-25] MEDS: Magnesium Oxide 400 MG TAB PO SCH (09:09)
[2020-03-25] MEDS: Thiamine 100 MG TAB PO SCH (09:09)
[2020-03-25] MEDS: glipiZIDE 5 MG TAB PO SCH (09:09)
[2020-03-25] MEDS: Lisinopril 10 MG TAB PO SCH (09:09)
[2020-03-25] MEDS: Multivitamin W/ Minerals 1 TAB PO SCH (09:09)
[2020-03-25] MEDS: Enoxaparin Sodium 40 MG/0.4 ML SYRINGE SC SCH (09:10)
[2020-03-25] MEDS: Vancomycin 1.5 GRAM/300 ML BAG 1.5 GM in Premix Bag 1 BAG IVPB SCH ×2 (09:10→20:33)
--- NOTE | 2020-03-25 09:54 | PDOC.BPN ---
- Brief Progress Note Encounter Date: 03/25/20 Encounter Time: 09:52 Discussed with hospitalist team. No acute events overnight. EXAM: VS: T 98.7 HR 81 BP 118/78 RR 20 SpO2 [ ] General: Alert and oriented, no acute distress, resting comfortably Pulmonary: No dyspnea or difficulty breathing Abdomen: Soft, non-distended, nontender CV: Regular rate and rhythm, palpable distal pulses Extremities: Stable lesion of right great toe with increased discharge I/O: [ ] oral intake [ ] UOP LABORATORY / IMAGING: [ ] PLAN: White blood cell count 8.1 49-year-old male with diabetic ulcer of the right great toe. Discussed the patient's management options. We will proceed with operative debridement versus ray amputation, tentatively scheduled for March 26, 2020. The relative risks and benefits of this procedure were discussed in detail with the patient, specifically addressing the risk of wound complications and the need for additional amputation. Informed consent was obtained.
[2020-03-25] MEDS ORDERED: Piperacillin/Tazobactam 3.375 GM VIAL ONE (12:01)
[2020-03-25] MEDS: Nicotine 21 MG PATCH TOP SCH (12:27)
--- NOTE | 2020-03-25 17:32 | PDOC.HOSPP ---
- Subjective Encounter Date: 03/25/20 Encounter Time: 12:30 Subjective: Patient seen and examined for osteomyelitis. Denies any new complaints. Pain controlled. No chest pain or shortness of breath reported. - Objective Vital Signs & Weight: Vital Signs (12 hours) Temp Pulse Resp BP Pulse Ox 03/25/20 17:24 93 122/63 96 03/25/20 14:12 82 16 96 03/25/20 09:20 98 03/25/20 07:49 70 18 98 03/25/20 07:27 98.7 F 81 20 118/78 96 Weight Admit Weight 175 lb 9.6 oz Weight 175 lb 9.6 oz I&O: 03/24/20 03/25/20 03/26/20 06:59 06:59 06:59 Intake Total Balance Result Diagrams: 03/24/20 07:21 03/25/20 05:22 Additional Labs: Accuchecks 03/25/20 03/25/20 03/25/20 16:14 14:08 05:27 POC Glucose 100 133 H 139 H 03/24/20 19:48 POC Glucose 255 H Laboratory Tests 03/22/20 03/23/20 18:46 06:04 Hemoglobin A1c 9.2 H C-Reactive Protein 7.41 H Abnormal Lab Results - Last 48 hrs 03/24/20 07:21: Sodium 134 L, BUN 7 L 03/24/20 07:21: MCH 31.7 H, MPV 6.8 L, Lymphocytes % 18.3 L, Monocytes # 0.6 H 03/25/20 05:22: Sodium 134 L, BUN 8 L Microbiology - Entire Visit 03/23/20 10:35 Foot - Abscess Bacterial Culture - Preliminary Proteus vulgaris group Non-Hemolytic Streptococcus 03/22/20 18:51 Venous blood - Right Arm Blood Culture - Preliminary NO GROWTH AT 48 HOURS 03/22/20 18:46 Venous blood - Left Arm Blood Culture - Preliminary NO GROWTH AT 48 HOURS Radiology Reviewed by me: Yes (MRIOsteomyelitis) Hospitalist ROS - Review of Systems Cardiovascular: denies: chest pain, palpitations, orthopnea, paroxysmal noc. dyspnea, edema, light headedness, other Gastrointestinal: denies: nausea, vomiting, abdominal pain, diarrhea, constipation, melena, hematochezia, other - Medication Medications: Active Medications Generic Name Dose Route Start Last Admin Trade Name Freq PRN Reason Stop Dose Admin Acetaminophen 650 mg 03/22/20 19:51 03/22/20 22:27 Acetaminophen 325 Mg Tab PO 650 mg Q4H PRN Administration Headache/Fever/Mild Pain (1-3) Albuterol/Ipratropium 3 ml 03/24/20 12:30 03/25/20 14:12 Ipratropium/Albuterol Sulfate 3 Ml Neb NEB 3 ml TID-RT SADIE Administration Amlodipine Besylate 5 mg 03/23/20 09:00 03/25/20 09:09 Amlodipine 5 Mg Tab PO 5 mg DAILY SADIE Administration Enoxaparin Sodium 40 mg 03/23/20 09:00 03/25/20 09:10 Enoxaparin Sodium 40 Mg/0.4 Ml Syringe SC Not Given 09 SADIE Folic Acid 1 mg 03/23/20 09:00 03/25/20 09:09 Folic Acid 1 Mg Tab PO 1 mg DAILY SADIE Administration Glipizide 5 mg 03/25/20 07:30 03/25/20 09:09 Glipizide 5 Mg Tab PO 5 mg DAILY-AC SADIE Administration Piperacillin Sod/Tazobactam 100 mls @ 200 mls/hr 03/23/20 12:00 03/25/20 12:59 Sod 3.375 gm/ Sodium Chloride IVPB 100 mls Q6HR SADIE Administration Vancomycin HCl 1.5 gm/ Device 300 mls @ 200 mls/hr 03/24/20 08:00 03/25/20 09:10 IVPB 300 mls 0800,2000 SADIE Administration Insulin Human Lispro 0 units 03/22/20 22:11 03/24/20 18:31 Humalog 300 Units/3 Ml Vial SC 2 unit .MODERATE SLIDING SC PRN Administration Moderate Correctional Scale Insulin Human Lispro 0 units 03/22/20 23:30 03/24/20 19:51 Humalog 300 Units/3 Ml Vial SC 3 unit .BEDTIME SLIDING SC PRN Administration BEDTIME SLIDING SCALE Protocol Iron/Minerals/Multivitamins 1 tab 03/23/20 09:00 03/25/20 09:09 Multivitamin W/ Minerals 1 Tab PO 1 tab DAILY SADIE Administration Lisinopril 10 mg 03/23/20 09:00 03/25/20 09:09 Lisinopril 10 Mg Tab PO 10 mg DAILY SADIE Administration Magnesium Oxide 400 mg 03/23/20 09:00 03/25/20 09:09 Magnesium Oxide 400 Mg Tab PO 400 mg DAILY SADIE Administration Nicotine 21 mg 03/24/20 12:00 03/25/20 12:27 Nicotine 21 Mg Patch TOP Not Given Q24HR SADIE Thiamine HCl 100 mg 03/23/20 09:00 03/25/20 09:09 Thiamine 100 Mg Tab PO 100 mg DAILY SADIE Administration - Exam General Appearance: NAD Heart: RRR, no gallops Respiratory: no wheezes, no ronchi Gastrointestinal: non-tender, non-distended, normal bowel sounds Extremities: no cyanosis Neurological: no new deficit Hosp A/P - Plan Sepsis due to right great toe osteomyelitisPOA Uncontrolled diabetes mellitus type 2 Tobacco dependence Chronic alcoholism Hyponatremia with sodium 127 on admission Plan: Continue vancomycin with Zosyn. Continue glipizide with sliding scale. Continue amlodipine. Monitor for alcohol withdrawals. N.p.o. past midnight for toe amputation. Monitor vancomycin level
[2020-03-25 19:35] LABS: Vancomycin, Trough 14.7 ug/mL
[2020-03-25] MEDS: Saccharomyces boulardii 250 MG CAP PO SCH (20:11)
[2020-03-25] MEDS: HumaLOG 300 UNITS/3 ML VIAL SC PRN (20:11)
[2020-03-26] MEDS: Piperacillin/Tazobactam 3.375 GM in Sodium Chloride 0.9% 100 ML IVPB SCH ×3 (05:21→16:55)
[2020-03-26 07:01] LABS: Anion Gap 16 mmol/L (10-20); BUN (Urea Nitrogen) 9 mg/dL (8.9-20.6); Calc. Creatinine Clearance 119 mL/min (70-130); Calcium 9.2 mg/dL (7.8-10.44); Carbon Dioxide 21 mmol/L (22-29); Chloride 100 mmol/L (98-107); Estimated GFR-MDRD Greater than 90; Glucose 129 mg/dL (70-105); Potassium 4.5 mmol/L (3.5-5.1); Sodium 132 mmol/L (136-145)
[2020-03-26] MEDS: glipiZIDE 5 MG TAB PO SCH (07:54)
[2020-03-26] MEDS: Lisinopril 10 MG TAB PO SCH (07:55)
[2020-03-26] MEDS: Amlodipine 5 MG TAB PO SCH (07:55)
[2020-03-26] MEDS: Thiamine 100 MG TAB PO SCH (07:55)
[2020-03-26] MEDS: Multivitamin W/ Minerals 1 TAB PO SCH (07:55)
[2020-03-26] MEDS: Enoxaparin Sodium 40 MG/0.4 ML SYRINGE SC SCH (07:56)
[2020-03-26] MEDS: Vancomycin 1.5 GRAM/300 ML BAG 1.5 GM in Premix Bag 1 BAG IVPB SCH ×2 (07:56→21:08)
[2020-03-26] MEDS: Magnesium Oxide 400 MG TAB PO SCH (07:57)
[2020-03-26] MEDS: Folic Acid 1 MG TAB PO SCH (07:57)
[2020-03-26] MEDS ORDERED: Metoclopramide HCl 10 MG/2 ML VIAL ONE (09:03)
[2020-03-26] MEDS ORDERED: EPHEDRINE 25 MG/5 ML SYRINGE ONE (09:03)
[2020-03-26] MEDS ORDERED: Lidocaine 1% PF 5 ML VIAL ONE (09:03)
[2020-03-26] MEDS ORDERED: Ondansetron PF 4 MG/2 ML Vial ONE (09:03)
[2020-03-26] MEDS ORDERED: PROPOFOL 200 MG/20 ML VIAL ONE (09:03)
[2020-03-26] MEDS ORDERED: Midazolam HCl 2 mg/2 ml Vial ONE (12:19)
[2020-03-26] MEDS ORDERED: Fentanyl 100 MCG/2 ML VIAL ONE (12:19)
[2020-03-26] MEDS ORDERED: Piperacillin/Tazobactam 3.375 GM VIAL ONE (12:34)
[2020-03-26] MEDS ORDERED: Sodium Chloride 0.9% 100 ML ONE (12:34)
[2020-03-26] MEDS ORDERED: Promethazine HCl 25 MG/ML VIAL SLOW IVP PRN (13:35)
[2020-03-26] MEDS ORDERED: Promethazine HCl 25 MG/ML VIAL IM PRN (13:35)
[2020-03-26] MEDS ORDERED: Ondansetron HCl/PF 4 MG/2 ML Vial IVP PRN (13:35)
--- NOTE | 2020-03-26 14:16 | PDOC.OP ---
Operative Note - Operative Note Operative Note: DATE OF SURGERY: March 26, 2020 SURGEON: Adarsh Sanchez MD PREOPERATIVE DIAGNOSIS: Diabetic foot, right great toe with osteomyelitis POSTOPERATIVE DIAGNOSIS: Diabetic foot, right great toe with osteomyelitis PROCEDURE: Right great toe amputation INDICATIONS: 49-year-old male with diabetic foot. The right great toe was infected and nonviable. PROCEDURE IN DETAIL: The patient was brought to the operating room and positioned supine on the operating room table. After induction of adequate anesthesia, the patient was prepared and draped in the usual fashion. The toe was inspected and a toe amputation planned. The skin and subcutaneous tissues were divided using electrocautery to the base of the proximal phalange. A periosteal elevator was used to elevate the soft tissues off of the metatarsal head until the metatarsalphalangeal joint was identified. This was incised sharply and the toe removed. The wound was irrigated and hemostasis achieved. The cartilage was removed from the end of the metatarsal head. The soft tissues were closed with interrupted 3-0 Vicryl sutures in a [id number] fashion. The skin was closed with 2-0 nylon sutures in a horizontal mattress fashion. At the conclusion of the case, all sponge and instrument counts were correct. ESTIMATED BLOOD LOSS: Minimal COMPLICATIONS: None INTRAOPERATIVE BLOOD TRANSFUSIONS: None GRAFTS / IMPLANTS: None SPECIMENS: Right great toe DISPOSITION: The patient was transported to the postoperative recovery unit in good conditions to be returned to the floor when criteria met.
[2020-03-26] MEDS: Nicotine 21 MG PATCH TOP SCH (15:11)
--- NOTE | 2020-03-26 15:11 | PDOC.HOSPP ---
- Subjective Encounter Date: 03/26/20 Encounter Time: 14:30 Subjective: had amputation of right gr toe today no sob or pain now - Objective Vital Signs & Weight: Vital Signs (12 hours) Temp Pulse Resp BP BP BP Pulse Ox 03/26/20 11:26 98.5 F 74 18 117/60 95 03/26/20 08:00 130/76 96 03/26/20 07:55 68 130/76 03/26/20 07:17 98.4 F 68 18 133/81 96 03/26/20 04:00 98.2 F 70 20 130/76 130/76 93 L Weight Admit Weight 175 lb 9.6 oz Weight 175 lb 9.6 oz I&O: 03/25/20 03/26/20 03/27/20 06:59 06:59 06:59 Intake Total 1700 Balance 1700 Result Diagrams: 03/24/20 07:21 03/26/20 06:36 Additional Labs: Accuchecks 03/26/20 03/25/20 03/25/20 04:39 19:55 16:14 POC Glucose 123 H 207 H 100 03/25/20 11:25 POC Glucose 251 H Hospitalist ROS - Medication Medications: Active Medications Generic Name Dose Route Start Last Admin Trade Name Freq PRN Reason Stop Dose Admin Acetaminophen 650 mg 03/22/20 19:51 03/22/20 22:27 Acetaminophen 325 Mg Tab PO 650 mg Q4H PRN Administration Headache/Fever/Mild Pain (1-3) Albuterol/Ipratropium 3 ml 03/24/20 12:30 03/26/20 14:58 Ipratropium/Albuterol Sulfate 3 Ml Neb NEB Not Given TID-RT SADIE Amlodipine Besylate 5 mg 03/23/20 09:00 03/26/20 07:55 Amlodipine 5 Mg Tab PO 5 mg DAILY SADIE Administration Enoxaparin Sodium 40 mg 03/23/20 09:00 03/26/20 07:56 Enoxaparin Sodium 40 Mg/0.4 Ml Syringe SC Not Given 0900 SADIE Folic Acid 1 mg 03/23/20 09:00 03/26/20 07:57 Folic Acid 1 Mg Tab PO 1 mg DAILY SADIE Administration Glipizide 5 mg 03/25/20 07:30 03/26/20 07:54 Glipizide 5 Mg Tab PO 5 mg DAILY-AC SADIE Administration Piperacillin Sod/Tazobactam 100 mls @ 200 mls/hr 03/23/20 12:00 03/26/20 14:36 Sod 3.375 gm/ Sodium Chloride IVPB Not Given Q6HR SADIE Vancomycin HCl 1.5 gm/ Device 300 mls @ 200 mls/hr 03/24/20 08:00 03/26/20 07:56 IVPB 300 mls 0800,1999 SDAIE Administration Insulin Human Lispro 0 units 03/22/20 22:11 03/24/20 18:31 Humalog 300 Units/3 Ml Vial SC 2 unit .MODERATE SLIDING SC PRN Administration Moderate Correctional Scale Insulin Human Lispro 0 units 03/22/20 23:30 03/25/20 20:11 Humalog 300 Units/3 Ml Vial SC 2 unit .BEDTIME SLIDING SC PRN Administration BEDTIME SLIDING SCALE Protocol Iron/Minerals/Multivitamins 1 tab 03/23/20 09:00 03/26/20 07:55 Multivitamin W/ Minerals 1 Tab PO 1 tab DAILY SADIE Administration Lisinopril 10 mg 03/23/20 09:00 03/26/20 07:55 Lisinopril 10 Mg Tab PO 10 mg DAILY SADIE Administration Magnesium Oxide 400 mg 03/23/20 09:00 03/26/20 07:57 Magnesium Oxide 400 Mg Tab PO 400 mg DAILY SADIE Administration Nicotine 21 mg 03/24/20 12:00 03/25/20 12:27 Nicotine 21 Mg Patch TOP Not Given Q24HR SADIE Saccharomyces Boulardii 250 mg 03/25/20 21:00 03/25/20 20:11 Saccharomyces Boulardii 250 Mg Cap PO 250 mg HS SADIE Administration Thiamine HCl 100 mg 03/23/20 09:00 03/26/20 07:55 Thiamine 100 Mg Tab PO 100 mg DAILY SADIE Administration - Exam General Appearance: awake alert Eye: PERRL, anicteric sclera ENT: no oropharyngeal lesions, moist mucosa Neck: supple, no JVD Heart: RRR, no murmur Respiratory: no wheezes, no rales Gastrointestinal: soft, non-tender, non-distended, normal bowel sounds Extremities: no edema Extremities - other findings: right forefoot in dressing Neurological: cranial nerve grossly intact, no focal deficits Hosp A/P (1) Osteomyelitis of great toe of right foot Code(s): M86.9 - OSTEOMYELITIS, UNSPECIFIED Status: Acute (2) Diabetic ulcer of right foot Code(s): E11.621 - TYPE 2 DIABETES MELLITUS WITH FOOT ULCER; L97.519 - NON-PRS CHRONIC ULCER OTH PRT RIGHT FOOT W UNSP SEVERITY Status: Acute Qualifiers: Diabetic foot ulcer location: toe Diabetes mellitus type: type 2 Non- pressure ulcer stage: with bone involvement without evidence of necrosis Qualified Code(s): E11.621 - Type 2 diabetes mellitus with foot ulcer; L97.516 - Non-pressure chronic ulcer of other part of right foot with bone involvement without evidence of necrosis (3) DM type 2 (diabetes mellitus, type 2) Status: Acute Qualifiers: 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
--- NOTE | 2020-03-26 15:31 | PRG ---
DATE OF SERVICE: 03/26/2020 SUBJECTIVE: Mr. العراقي had amputation of the toe right foot and the operative report is still pending. The pathology is still pending. The patient is feeling better. No headaches or respiratory symptoms or abdominal pain. Voiding without difficulty. OBJECTIVE: VITAL SIGNS: His T-max 99, blood pressure 117/60, heart rate 74, respiratory rate 18, and O2 saturation 95%. GENERAL: Does not appear in distress. HEENT: His ocular movements are conjugate. LUNGS: Clear breath sounds. HEART: S1 and S2. Regular rate. ABDOMEN: Soft, not distended. : No bladder distention. EXTREMITIES: The right foot is dressed. Dressing not removed. LABORATORY DATA: White cell count 8.1, hemoglobin 14.9, platelets 230. Creatinine 0.84. Culture from the foot will have Proteus vulgaris and Enterococcus faecalis. Proteus is susceptible to quinolones, E faecalis is susceptible to ampicillin/sulbactam. ASSESSMENT AND DISCUSSION: Type 2 diabetes, untreated; neuropathy; ulcer, medial aspect of right first toe; osteomyelitis; necrosis. He did have surgical intervention. It looks like it was some form of amputation, but waiting on the final report and the path report as well, it looks like with this sort of organisms retrieved, we will be able to switch him to oral quinolone plus Augmentin depending on the results of the pathology and the actual procedure that was carried out. At this moment, he is receiving vancomycin and piperacillin/tazobactam, so as soon as we know the extent of the procedure that was carried out plus the path report then we will be able to devise hopefully oral combination of levofloxacin and Augmentin for discharge planning. Job ID: [id number]
[2020-03-26] MEDS: Saccharomyces boulardii 250 MG CAP PO SCH (21:08)
[2020-03-27] MEDS: Piperacillin/Tazobactam 3.375 GM in Sodium Chloride 0.9% 100 ML IVPB SCH ×5 (01:21→23:39)
[2020-03-27 06:09] LABS: Anion Gap 13 mmol/L (10-20); BUN (Urea Nitrogen) 10 mg/dL (8.9-20.6); Calc. Creatinine Clearance 120 mL/min (70-130); Calcium 8.9 mg/dL (7.8-10.44); Carbon Dioxide 23 mmol/L (22-29); Chloride 101 mmol/L (98-107); Estimated GFR-MDRD Greater than 90; Glucose 125 mg/dL (70-105); Potassium 4.2 mmol/L (3.5-5.1); Sodium 133 mmol/L (136-145)
[2020-03-27 07:25] LABS: Vancomycin, Trough 17.2 ug/mL
[2020-03-27] MEDS: Vancomycin 1.5 GRAM/300 ML BAG 1.5 GM in Premix Bag 1 BAG IVPB SCH ×2 (07:50→19:33)
[2020-03-27] MEDS: Magnesium Oxide 400 MG TAB PO SCH (07:51)
[2020-03-27] MEDS: Folic Acid 1 MG TAB PO SCH (07:51)
[2020-03-27] MEDS: Multivitamin W/ Minerals 1 TAB PO SCH (07:51)
[2020-03-27] MEDS: Thiamine 100 MG TAB PO SCH (07:51)
[2020-03-27] MEDS: Amlodipine 5 MG TAB PO SCH (07:51)
[2020-03-27] MEDS: glipiZIDE 5 MG TAB PO SCH (07:51)
[2020-03-27] MEDS: Lisinopril 10 MG TAB PO SCH (07:51)
[2020-03-27] MEDS: Enoxaparin Sodium 40 MG/0.4 ML SYRINGE SC SCH (07:52)
[2020-03-27] MEDS: HumaLOG 300 UNITS/3 ML VIAL SC PRN (11:18)
[2020-03-27] MEDS: Nicotine 21 MG PATCH TOP SCH (11:47)
--- NOTE | 2020-03-27 13:53 | PDOC.HOSPP ---
- Subjective Encounter Date: 03/27/20 Encounter Time: 11:30 Subjective: is amb in room no pain feels better no sob - Objective Vital Signs & Weight: Vital Signs (12 hours) Temp Pulse Resp BP BP BP Pulse Ox 03/27/20 08:00 97 03/27/20 07:51 84 127/74 03/27/20 07:23 98.1 F 84 18 123/74 97 03/27/20 04:00 98.6 F 73 20 127/74 125/67 20 L Weight Admit Weight 175 lb 9.6 oz Weight 175 lb 9.6 oz I&O: 03/26/20 03/27/20 03/28/20 06:59 06:59 06:59 Intake Total 1700 240 Balance 1700 240 Result Diagrams: 03/24/20 07:21 03/27/20 05:12 Additional Labs: Accuchecks 03/27/20 03/27/20 03/26/20 11:15 04:16 20:04 POC Glucose 192 H 118 H 293 H 03/26/20 03/25/20 15:26 11:25 POC Glucose 89 251 H Hospitalist ROS - Medication Medications: Active Medications Generic Name Dose Route Start Last Admin Trade Name Freq PRN Reason Stop Dose Admin Acetaminophen 650 mg 03/22/20 19:51 03/22/20 22:27 Acetaminophen 325 Mg Tab PO 650 mg Q4H PRN Administration Headache/Fever/Mild Pain (1-3) Amlodipine Besylate 5 mg 03/23/20 09:00 03/27/20 07:51 Amlodipine 5 Mg Tab PO 5 mg DAILY SADIE Administration Enoxaparin Sodium 40 mg 03/23/20 09:00 03/27/20 07:52 Enoxaparin Sodium 40 Mg/0.4 Ml Syringe SC 40 mg 0900 SADIE Administration Folic Acid 1 mg 03/23/20 09:00 03/27/20 07:51 Folic Acid 1 Mg Tab PO 1 mg DAILY SADIE Administration Glipizide 5 mg 03/25/20 07:30 03/27/20 07:51 Glipizide 5 Mg Tab PO 5 mg DAILY-AC SADIE Administration Piperacillin Sod/Tazobactam 100 mls @ 200 mls/hr 03/23/20 12:00 03/27/20 11:16 Sod 3.375 gm/ Sodium Chloride IVPB 100 mls Q6HR SADIE Administration Vancomycin HCl 1.5 gm/ Device 300 mls @ 200 mls/hr 03/24/20 08:00 03/27/20 07:50 IVPB 300 mls 08,1999 SADIE Administration Insulin Human Lispro 0 units 03/22/20 22:11 03/27/20 11:18 Humalog 300 Units/3 Ml Vial SC 2 unit .MODERATE SLIDING SC PRN Administration Moderate Correctional Scale Insulin Human Lispro 0 units 03/22/20 23:30 03/25/20 20:11 Humalog 300 Units/3 Ml Vial SC 2 unit .BEDTIME SLIDING SC PRN Administration BEDTIME SLIDING SCALE Protocol Iron/Minerals/Multivitamins 1 tab 03/23/20 09:00 03/27/20 07:51 Multivitamin W/ Minerals 1 Tab PO 1 tab DAILY SADIE Administration Lisinopril 10 mg 03/23/20 09:00 03/27/20 07:51 Lisinopril 10 Mg Tab PO 10 mg DAILY SADIE Administration Magnesium Oxide 400 mg 03/23/20 09:00 03/27/20 07:51 Magnesium Oxide 400 Mg Tab PO 400 mg DAILY SADIE Administration Nicotine 21 mg 03/24/20 12:00 03/27/20 11:47 Nicotine 21 Mg Patch TOP Not Given Q24HR SADIE Saccharomyces Boulardii 250 mg 03/25/20 21:00 03/26/20 21:08 Saccharomyces Boulardii 250 Mg Cap PO 250 mg HS SADIE Administration Thiamine HCl 100 mg 03/23/20 09:00 03/27/20 07:51 Thiamine 100 Mg Tab PO 100 mg DAILY SADIE Administration - Exam General Appearance: awake alert Eye: PERRL, anicteric sclera ENT: no oropharyngeal lesions, moist mucosa Neck: supple, no JVD Heart: RRR, no murmur Respiratory: no wheezes, no rales Gastrointestinal: soft, non-tender, non-distended, normal bowel sounds Extremities: no cyanosis, no edema Extremities - other findings: forefoot in dressing and surg boot Neurological: cranial nerve grossly intact, no focal deficits Psychiatric: normal affect, A&O x 3 Hosp A/P (1) Osteomyelitis of great toe of right foot Code(s): M86.9 - OSTEOMYELITIS, UNSPECIFIED Status: Acute (2) Diabetic ulcer of right foot Code(s): E11.621 - TYPE 2 DIABETES MELLITUS WITH FOOT ULCER; L97.519 - NON-PRS CHRONIC ULCER OTH PRT RIGHT FOOT W UNSP SEVERITY Status: Acute Qualifiers: Diabetic foot ulcer location: toe Diabetes mellitus type: type 2 Non- pressure ulcer stage: with bone involvement without evidence of necrosis Qualified Code(s): E11.621 - Type 2 diabetes mellitus with foot ulcer; L97.516 - Non-pressure chronic ulcer of other part of right foot with bone involvement without evidence of necrosis (3) DM type 2 (diabetes mellitus, type 2) Status: Acute Qualifiers: Diabetes mellitus exterminator helper termite insulin use: without group home use (4) HTN (hypertension) Code(s): I10 - ESSENTIAL (PRIMARY) HYPERTENSION Status: Acute Qualifiers: Hypertension type: essential hypertension Qualified Code(s): I10 - Essential (primary) hypertension (5) Alcohol abuse Code(s): F10.10 - ALCOHOL ABUSE, UNCOMPLICATED Status: Chronic (6) Tobacco abuse Code(s): Z72.0 - TOBACCO USE Status: Chronic - Plan is on vanc and zosyn s/p amp of right gr toe 03/26 ase protocol for alc abuse contnue lisinopril, norvasc, will start glipizide (likely will be noncompliant with insulins) hemostable will need oral antibiotics on dc x 10 days? depending on the path results (levaquin and augmentin per )
--- NOTE | 2020-03-27 15:29 | PDOC.BPN ---
- Brief Progress Note Encounter Date: 03/27/20 Encounter Time: 15:27 Doing well s/p amputation right great toe. Postoperative pain well controlled with current regimen. Tolerating regular diet, without nausea or vomiting. Endorses flatus and bowel movements. Ambulating independently. EXAM: VS: Afebrile, vital signs within normal limits General: Alert and oriented, no acute distress, resting comfortably Pulmonary: No dyspnea or difficulty breathing Abdomen: Soft, non-distended, tender CV: Regular rate and rhythm, palpable distal pulses Extremities: No edema, right foot dressed and evaluated by wound care I/O: [ ] oral intake [ ] UOP LABORATORY / IMAGING: Laboratory analysis grossly normal. No leukocytosis PLAN: 79-year-old male with uncontrolled diabetes and diabetic right great toe status post right great toe amputation. Continue postop shoe Diabetes management per hospitalist team Cultures pending from specimen Dressing change instruction by nursing We will sign off, please call for any questions Okay to discharge from surgical standpoint
[2020-03-27] MEDS: Saccharomyces boulardii 250 MG CAP PO SCH (19:39)
[2020-03-28] MEDS: Piperacillin/Tazobactam 3.375 GM in Sodium Chloride 0.9% 100 ML IVPB SCH (05:26)
[2020-03-28] MEDS: Thiamine 100 MG TAB PO SCH (08:21)
[2020-03-28] MEDS: glipiZIDE 5 MG TAB PO SCH (08:21)
[2020-03-28] MEDS: Folic Acid 1 MG TAB PO SCH (08:21)
[2020-03-28] MEDS: Magnesium Oxide 400 MG TAB PO SCH (08:21)
[2020-03-28] MEDS: Lisinopril 10 MG TAB PO SCH (08:21)
[2020-03-28] MEDS: Enoxaparin Sodium 40 MG/0.4 ML SYRINGE SC SCH (08:22)
[2020-03-28] MEDS: Amlodipine 5 MG TAB PO SCH (08:22)
[2020-03-28] MEDS: Vancomycin 1.5 GRAM/300 ML BAG 1.5 GM in Premix Bag 1 BAG IVPB SCH (08:22)
[2020-03-28] MEDS: Multivitamin W/ Minerals 1 TAB PO SCH (08:22)
[2020-03-28 11:36] VITALS: BP 141/77; TEMP 98.7
--- NOTE | 2020-03-28 17:53 | DIS ---
DATE OF ADMISSION: 03/22/2020 DATE OF DISCHARGE: 03/28/2020 DISCHARGE DISPOSITION: Home. PRIMARY DISCHARGE DIAGNOSES: Right great toe amputation due to osteomyelitis and diabetic ulcer, new onset diabetes mellitus type 2, alcohol abuse, hypertension, tobacco abuse. PROCEDURES DONE DURING HOSPITALIZATION: The patient has had amputation of right great toe done on 03/26/[address] Sanchez. Foot x-ray done on the day of admission for the right foot showed findings suggestive of osteomyelitis of the right great toe distal phalanx. MRI of the foot done showed findings compatible with osteomyelitis involving the great toe distal phalanx and distal aspect of the great toe proximal phalanx as well. Histopathology of the amputated right great toe shows skin and soft tissue margins viable, right great toe abscess wound cultures have grown Proteus vulgaris and Enterococcus. Blood cultures x2, no growth. H and H 14 and 42, platelet count is 230. BUN, and creatinine 10 and 0.8. Fingerstick glucose is ranged from 90 to 192. HbA1c 9.2. Total cholesterol 133, triglycerides 134, LDL 77, HDL 29. CRP was 7.4. COVID-19 PCR was not detected on 03/22/2020. DISCHARGE MEDICATIONS: 1. Augmentin 875 mg one tablet twice daily for 8 days. 2. Levaquin 500 mg one tablet daily for 8 days. 3. Glipizide 5 mg p.o. daily. 4. Folic acid 1 mg p.o. daily. 5. Norvasc 5 mg daily. 6. Multivitamin one tablet once daily. 7. Thiamine 100 mg p.o. daily. 8. Lisinopril 10 mg p.o. daily. ALLERGIES: NO KNOWN DRUG ALLERGIES. DISCHARGE PLAN: The patient will find and follow up with primary care physician in the local area in 1 week. He needs to follow up with Dr. Sanchez in a week. He needs to call his office and set up an appointment. The patient needs to follow up with Dr. Reese in 2 weeks. BRIEF COURSE DURING HOSPITALIZATION: The patient initially was brought to emergency room on the 22 of March with complaints of dizziness, weakness, and right great toe ulcer. He was also confused on arrival. Initial imaging studies were consistent with osteomyelitis of right great toe with foul-smelling ulcer. He was diagnosed with new onset diabetes and hypertension. He was placed on broad- spectrum antibiotics and has had consultation with Dr. Sanchez for General Surgery. The patient has had amputation of right great toe done. Post-procedure, he is ambulating and eating well. He was optimized on oral medications for his diabetes and hypertension. He has responded well to above measures. The patient has known history of alcohol abuse and tobacco abuse and was counseled against the same. He is hemodynamically stable and is cleared for discharge today. He needs to continue antibiotics as prescribed and follow up with Dr. Sanchez in his office. He has been educated about dressing changes at the amputated site on the right foot. Please note, I have seen and examined the patient on the day of discharge. Job ID: [id number] [facility]
--- NOTE | 2020-03-31 02:26 | PQF ---
CLINICAL DOCUMENTATION CLARIFICATION FORM: Dear : Jacky Harkins Date / Time: 03/31/2020 Please exercise your independent, professional judgment in responding to the clarification form. Clinical indicators are provided on the bottom of this form for your review Please check appropriate box(es): [ ] Sepsis [x ] Localized infection without sepsis [ ] Other diagnosis [ ] Unable to determine In addition, please specify: Present on Admission (POA): [x ] Yes [ ] No [ ] Unable to determine To be completed by CDI/Coding staff for physician review: Present Clinical Indicators - Signs / Symptoms / Labs Results and Location in Medical Record [ x ] Sepsis due to right great toe osteomyelitis - POA Progress note 03/25 by John Forbes MD [ x ] Heart rates were 111, 95, 97 and 94. Blood pressures were 180/85, 197/106, 185/99 and 171/86 ED provider notes [ x ] WBC is 12.2 (H) on 03/22 Laboratory [ x ] C-Reactive protein Laboratory Present Risk Factors Results and Location in Medical Record [ x ] Right toe cellulitis, osteomyelitis, diabetes, foot ulcer H and P and Discharge summary Present Treatments Results and Location in Medical Record [ x ] IV Cefepime 03/22-03/23 Medications [ x ] IV Vancomycin 03/22-03/24 Medications [ x ] IV Zosyn 03/23-03/28 Medications [ x ] ID consult 03/23 by Evan Reese MD Reports [ x ] Daily CBCs Laboratory CDS/Market Risk Manager Signature: [id number] Phone #: Date/Time: 03/31/2020 This is a permanent part of the Medical Record [facility]
== END 2020-03-28 12:20 | disposition home or self-care (01) | DRG 617 ==
LOC: ERS 18:19 → T4-B 19:37
PROVIDERS: ADMIT Internal Medicine; ATTEND Internal Medicine
PROC: 0Y6P0Z0 Detachment at Right 1st Toe, Complete, Open Approach (ICD-10-PCS; principal; 2020-03-26)
DX: E11.69 Type 2 diabetes mellitus with other specified complication (principal); M86.8X7 Other osteomyelitis, ankle and foot; L97.516 Non-pressure chronic ulcer of other part of right foot with bone involvement without evidence of necrosis; E11.52 Type 2 diabetes mellitus with diabetic peripheral angiopathy with gangrene; E87.1 Hypo-osmolality and hyponatremia; L02.611 Cutaneous abscess of right foot; I96 Gangrene, not elsewhere classified; Z20.828 Contact with and (suspected) exposure to other viral communicable diseases; L03.031 Cellulitis of right toe; F17.210 Nicotine dependence, cigarettes, uncomplicated; I10 Essential (primary) hypertension; F10.10 Alcohol abuse, uncomplicated; E11.40 Type 2 diabetes mellitus with diabetic neuropathy, unspecified; E11.621 Type 2 diabetes mellitus with foot ulcer; Z71.6 Tobacco abuse counseling; Z71.41 Alcohol abuse counseling and surveillance of alcoholic
CPT/HCPCS: 36415; 36416; 80048; 80053; 80061; 80202; 81003; 83036; 83605; 85007; 85025; 85027; 85652; 86140; 87040; 87070; 87077; 87186; 87205; 87635; 88305; 88311; 94640; A9579; J0692; J1650; J1815; J2250; J2405; J2543; J2704; J2765; J3010; J3370; J3411; J3475; J3490; J7050; J7620; U0003

== ENCOUNTER 2021-04-21 10:42 | Outpatient (CLI) | payer BC | END 2021-04-21 10:43 | disposition home or self-care (01) | LOC: NM 10:42 | PROVIDERS: ATTEND Internal Medicine Cardiovascular Disease | DX: I10 Essential (primary) hypertension (principal); R93.1 Abnormal findings on diagnostic imaging of heart and coronary circulation | CPT/HCPCS: 78466; A9505 ==

== ENCOUNTER 2021-05-08 10:17 | Outpatient (CLI) | payer BC ==
[2021-05-09 11:22] LABS: SARS-CoV-2 PCR by NAA Not Detected (NotDetected)
== END 2021-05-08 10:18 | disposition home or self-care (01) ==
LOC: LABBT 10:17
PROVIDERS: ATTEND Thoracic Surgery (Cardiothoracic Vascular Surgery)
DX: Z01.818 Encounter for other preprocedural examination (principal); Z20.822 Contact with and (suspected) exposure to COVID-19
CPT/HCPCS: 71046; 93005; 93010; U0003; U0005

== ENCOUNTER 2021-05-08 10:30 | Inpatient (IN) | payer BC ==
[2021-05-08 11:48] LABS: Hemoglobin 15.1 g/dL (13.5-17.5); Mean Corpuscular HGB CONC 32.6 g/dL (32.0-36.0); Mean Corpuscular Hemoglobin 25.9 pg (27.0-33.0); Mean Corpuscular Volume 79.6 fl (81.2-95.1); Platelet Count 241 10x3/uL (150-450); RBC Distribution Width 15.1 % (11.5-14.5); Red Blood Cell (RBC) Count 5.82 10x6/uL (4.32-5.72); White Blood Cell (WBC) Count 10.8 10x3/uL (3.5-10.5)
[2021-05-08 11:58] LABS: Anion Gap 16 mmol/L (10-20); BUN (Urea Nitrogen) 8 mg/dL (8.4-25.7); Calc. Creatinine Clearance 0 mL/min (70-130); Carbon Dioxide 25 mmol/L (22-29); Chloride 102 mmol/L (98-107); Glucose 184 mg/dL (70-105); Potassium 4.7 mmol/L (3.5-5.1); Sodium 138 mmol/L (136-145)
[2021-05-09] MEDS ORDERED: ceFAZolin 2 GM/DEX 5% 100 ML BAG ONE (06:17)
[2021-05-09] MEDS ORDERED: EPINEPHrine 1 MG/ML AMP ONE (06:25)
[2021-05-09] MEDS ORDERED: Dexamethasone 4 mg/ml Vial ONE (06:25)
[2021-05-09] MEDS ORDERED: Albumin 5% 500 ML ONE (06:25)
[2021-05-09] MEDS ORDERED: Bupivacaine PF 0.5% 30 ML VIAL ONE (06:25)
[2021-05-09] MEDS ORDERED: Fentanyl 250 MCG/5 ML VIAL ONE (06:53)
[2021-05-09] MEDS ORDERED: Dexmedetomidine 200 MCG/2 ML VIAL ONE (06:54)
[2021-05-09] MEDS ORDERED: Midazolam HCl 5 mg/5 ml Vial ONE (06:54)
[2021-05-09] MEDS ORDERED: Heparin 10,000 UNITS/1 ML VIAL 30,000 UNITS in Sodium Chloride 0.9% 1,000 ML FS SCH (07:00)
[2021-05-09] MEDS ORDERED: Midazolam HCl 2 mg/2 ml Vial ONE (07:11)
[2021-05-09] MEDS ORDERED: Ondansetron ODT 4 MG TAB ONE (07:11)
[2021-05-09] MEDS ORDERED: Potassium Chloride 60 MEQ/30 ML VIAL ONE (07:53)
[2021-05-09] MEDS ORDERED: Papaverine 60 MG/2 ML VIAL ONE (07:53)
[2021-05-09] MEDS ORDERED: Glycopyrrolate 0.2 MG/ML 5 ML SYRINGE ONE (07:53)
[2021-05-09] MEDS ORDERED: Ondansetron PF 4 MG/2 ML Vial ONE (07:53)
[2021-05-09] MEDS ORDERED: Sodium Bicarb 50 MEQ/50 ML Abboject 8.4% SYRINGE ONE (07:53)
[2021-05-09] MEDS ORDERED: Calcium Chloride 1 GM/10 ML Abboject SYRINGE ONE (07:53)
[2021-05-09] MEDS ORDERED: Ketorolac Tromethamine 30 MG/ML VIAL ONE (07:53)
[2021-05-09] MEDS ORDERED: Heparin 5,000 UNITS/ML VIAL ONE (07:53)
[2021-05-09] MEDS ORDERED: Protamine Sulfate 250 MG/25 ML VIAL ONE (07:53)
[2021-05-09] MEDS ORDERED: PROPOFOL 200 MG/20 ML VIAL ONE (07:53)
[2021-05-09] MEDS ORDERED: Heparin 30,000 units/30 ml VIAL ONE (07:53)
[2021-05-09] MEDS ORDERED: Lidocaine 2% PF 100 mg/5 ml Syringe ONE (07:53)
[2021-05-09] MEDS ORDERED: Nitroglycerin 50 MG/250 ML BOT ONE (07:53)
[2021-05-09] MEDS ORDERED: Lidocaine 1% PF 5 ML VIAL ONE (07:53)
[2021-05-09] MEDS ORDERED: Cardioplegic Soln 1,000 ML BAG ONE (07:53)
[2021-05-09] MEDS ORDERED: Vecuronium 10 MG VIAL ONE (07:53)
[2021-05-09] MEDS ORDERED: Thrombin 5000 UNITS/5 ML VIAL ONE (07:53)
[2021-05-09] MEDS ORDERED: Aminocaproic Acid 5 GM/20 ML VIAL ONE (07:53)
[2021-05-09] MEDS ORDERED: Magnesium Sulfate 1 GM/2 ML VIAL ONE (07:53)
[2021-05-09] MEDS ORDERED: Dexamethasone 20 MG/5 ML VIAL ONE (07:53)
[2021-05-09] MEDS ORDERED: Insulin Regular 300 UNITS/3 ML VIAL ONE (08:47)
[2021-05-09] MEDS: Insulin Regular 300 UNITS/3 ML VIAL SC PRN (11:30)
[2021-05-09] MEDS ORDERED: Ondansetron PF 4 MG/2 ML Vial IVP PRN (11:33)
[2021-05-09] MEDS ORDERED: Morphine 2 MG/ML VIAL SLOW IVP PRN (11:33)
[2021-05-09] MEDS ORDERED: Post-Op Insulin Drip Protocol IVPB ONE (11:33)
[2021-05-09] MEDS ORDERED: Potassium Chloride 20 MEQ/100 ML PREMIX BAG IVPB PRN (11:33)
[2021-05-09] MEDS ORDERED: Guaifenesin DM 100-10/5 ML UDCUP PO PRN (11:33)
[2021-05-09] MEDS ORDERED: D5 1/2 NS w/20 mEq KCL 1,000 ML IV SCH (11:33)
[2021-05-09] MEDS ORDERED: Nitroglycerin 50 MG/250 ML BOT 250 ML IVPB PRN (11:33)
[2021-05-09] MEDS ORDERED: Mag-Al 1200 mg/1200 mg/30 ML UDCUP PO PRN (11:33)
[2021-05-09] MEDS ORDERED: traMADol HCl 50 MG TAB PO PRN ×2 (11:33)
[2021-05-09] MEDS ORDERED: Magnesium 2 GM/50 ML 2 GM in Premix Bag 1 BAG IVPB SCH (11:33)
[2021-05-09] MEDS ORDERED: Hetastarch 6% 500 ML 500 ML IVPB PRN (11:33)
[2021-05-09] MEDS ORDERED: niCARdipine 25 MG in Sodium Chloride 0.9% 250 ML 250 ML IVPB PRN (11:33)
[2021-05-09] MEDS ORDERED: Norepinephrine 8 MG/0.9% NS 250 ML IVPB PRN (11:33)
[2021-05-09] MEDS ORDERED: Bisacodyl 10 MG SUPP PR PRN (11:33)
[2021-05-09] MEDS ORDERED: Bisacodyl 5 MG TAB PO PRN (11:33)
[2021-05-09] MEDS ORDERED: Fentanyl 100 MCG/2 ML VIAL SLOW IVP PRN ×2 (11:33)
[2021-05-09] MEDS ORDERED: Acetaminophen 325 MG TAB PO PRN (11:33)
[2021-05-09 11:49] LABS: #Eosinphils 0.3 thou/uL (0.0-0.7); #Lymphocytes 1.6 thou/uL (1.20-3.40); #Monocytes 0.9 thou/uL (0.11-0.59); #Neutrophils 9.3 thou/uL (1.40-6.50); %Basophils 0.2 % (0.0-1.0); %Eosinophils 2.3 % (0.0-10.0); %Lymphocytes 13.3 % (21.0-51.0); %Neutrophils 77.2 % (42.0-75.0); Mean Corpuscular HGB CONC 32.6 g/dL (32.0-36.0); Mean Platelet Volume 7.2 fL (7.4-10.4); Platelet Count 154 thou/uL (130-400); RBC Distribution Width 14.8 % (11.5-14.5); Red Blood Cell (RBC) Count 4.46 mill/uL (4.70-6.10); White Blood Cell (WBC) Count 12.1 thou/uL (4.8-10.8)
[2021-05-09 11:56] LABS: INR-International Normal Ratio 1.2; PTT 32.9 sec (22.9-36.1); Prothrombin Time 15.6 sec (12.0-14.7)
[2021-05-09 12:02] LABS: Anion Gap 9 mmol/L (10-20); BUN (Urea Nitrogen) 8 mg/dL (8.4-25.7); Calc. Creatinine Clearance 116 mL/min (70-130); Calcium 7.8 mg/dL (7.8-10.44); Carbon Dioxide 24 mmol/L (22-29); Chloride 109 mmol/L (98-107); Glucose 152 mg/dL (70-105); Potassium 4.1 mmol/L (3.5-5.1); Sodium 138 mmol/L (136-145)
[2021-05-09] MEDS ORDERED: Dextrose 5% in Water 1,000 ML IV PRN (12:45)
[2021-05-09] MEDS ORDERED: Dextrose 50% Abboject 50 ML SYRINGE SLOW IVP PRN (12:45)
[2021-05-09] MEDS ORDERED: Lantus 1000 UNITS/10 ML VIAL SC PRN (12:45)
[2021-05-09] MEDS ORDERED: HUMULIN R 100 UNITS in Sodium Chloride 0.9% 100 ML IVPB SCH (12:45)
[2021-05-09] MEDS: Ketorolac Tromethamine 30 MG/ML VIAL IVP SCH ×3 (13:20→23:54)
[2021-05-09] MEDS: ceFAZolin Sodium/D5W 2 GM in Premix Bag 1 BAG IVPB SCH ×2 (14:18→21:05)
[2021-05-09 17:09] LABS: Hemoglobin 11.7 g/dL (14.0-18.0)
[2021-05-09 17:28] LABS: Potassium 4.2 mmol/L (3.5-5.1)
[2021-05-09] MEDS ORDERED: Famotidine/PF 20 mg/2ml Vial SLOW IVP SCH (21:00)
[2021-05-10 04:50] LABS: #Lymphocytes 1.1 thou/uL (1.20-3.40); #Monocytes 1.1 thou/uL (0.11-0.59); #Neutrophils 13.1 thou/uL (1.40-6.50); %Basophils 0.2 % (0.0-1.0); %Eosinophils 0.1 % (0.0-10.0); %Lymphocytes 7.1 % (21.0-51.0); %Monocytes 7.4 % (0.0-10.0); %Neutrophils 85.2 % (42.0-75.0); Hemoglobin 11.6 g/dL (14.0-18.0); Mean Corpuscular HGB CONC 33.1 g/dL (32.0-36.0); Mean Corpuscular Hemoglobin 27.4 pg (27.0-31.0); Mean Corpuscular Volume 82.8 fL (78.0-98.0); Mean Platelet Volume 7.6 fL (7.4-10.4); Platelet Count 166 thou/uL (130-400); RBC Distribution Width 14.9 % (11.5-14.5); Red Blood Cell (RBC) Count 4.22 mill/uL (4.70-6.10); White Blood Cell (WBC) Count 15.4 thou/uL (4.8-10.8)
[2021-05-10 05:10] LABS: Anion Gap 10 mmol/L (10-20); BUN (Urea Nitrogen) 8 mg/dL (8.4-25.7); Calc. Creatinine Clearance 121 mL/min (70-130); Calcium 8.7 mg/dL (7.8-10.44); Carbon Dioxide 24 mmol/L (22-29); Chloride 107 mmol/L (98-107); Glucose 104 mg/dL (70-105); Potassium 4.1 mmol/L (3.5-5.1); Sodium 137 mmol/L (136-145)
[2021-05-10] MEDS: Ketorolac Tromethamine 30 MG/ML VIAL IVP SCH ×3 (06:17→17:37)
[2021-05-10] MEDS: ceFAZolin Sodium/D5W 2 GM in Premix Bag 1 BAG IVPB SCH (06:17)
[2021-05-10] MEDS ORDERED: Dextrose 50% Abboject 50 ML SYRINGE SLOW IVP PRN (08:01)
[2021-05-10] MEDS ORDERED: Dextrose 5% in Water 1,000 ML IV PRN (08:01)
[2021-05-10] MEDS: Rosuvastatin 20 MG TAB PO SCH (08:39)
[2021-05-10] MEDS: Aspirin 325 MG TAB PO SCH (08:39)
[2021-05-10] MEDS: Magnesium 2 GM/50 ML 2 GM in Premix Bag 1 BAG IVPB SCH (08:39)
[2021-05-10] MEDS: Metoprolol Tartrate 25 MG TAB PO SCH ×2 (08:53→20:42)
[2021-05-10] MEDS: Insulin Regular 300 UNITS/3 ML VIAL SC PRN ×3 (11:51→20:48)
[2021-05-11] MEDS: Ketorolac Tromethamine 30 MG/ML VIAL IVP SCH ×4 (00:11→17:00)
[2021-05-11 06:34] VITALS: BMI 25.4
[2021-05-11] MEDS: Aspirin 325 MG TAB PO SCH (08:34)
[2021-05-11] MEDS: Magnesium 2 GM/50 ML 2 GM in Premix Bag 1 BAG IVPB SCH (08:35)
[2021-05-11] MEDS: Rosuvastatin 20 MG TAB PO SCH (08:35)
[2021-05-11] MEDS: Metoprolol Tartrate 25 MG TAB PO SCH ×2 (08:35→20:43)
[2021-05-11] MEDS ORDERED: Guaifenesin DM 100-10/5 ML UDCUP PO PRN (10:56)
[2021-05-11] MEDS ORDERED: Zolpidem Tartrate 5 MG TAB PO PRN (10:56)
[2021-05-11] MEDS ORDERED: Mineral Oil ENEMA PR PRN (10:56)
[2021-05-11] MEDS ORDERED: Bisacodyl 5 MG TAB PO PRN (10:56)
[2021-05-11] MEDS ORDERED: diphenhydrAMINE 25 MG CAP PO PRN (10:56)
[2021-05-11] MEDS ORDERED: Milk Of Magnesia 30 ML UDCUP PO PRN (10:56)
[2021-05-11] MEDS ORDERED: Nitroglycerin 0.4 MG TAB (25 Tab Bottle) SL PRN (10:56)
[2021-05-11] MEDS ORDERED: Bisacodyl 10 MG SUPP PR PRN (10:56)
[2021-05-11] MEDS ORDERED: Mag-Al 1200 mg/1200 mg/30 ML UDCUP PO PRN (10:56)
[2021-05-11] MEDS: Insulin Regular 300 UNITS/3 ML VIAL SC PRN ×3 (12:00→22:42)
[2021-05-12] MEDS: Ketorolac Tromethamine 30 MG/ML VIAL IVP SCH ×2 (00:35→05:29)
[2021-05-12] MEDS: Insulin Regular 300 UNITS/3 ML VIAL SC PRN (06:11)
[2021-05-12] MEDS: Aspirin 325 MG TAB PO SCH (08:02)
[2021-05-12] MEDS: Metoprolol Tartrate 25 MG TAB PO SCH (08:03)
[2021-05-12] MEDS: Rosuvastatin 20 MG TAB PO SCH (08:03)
[2021-05-12 08:08] VITALS: BP 160/77; TEMP 98.3
[2021-05-12] MEDS ORDERED: Lisinopril 2.5 MG TAB PO SCH (09:00)
== END 2021-05-12 10:50 | disposition home or self-care (01) | DRG 236 ==
LOC: SURG A 05-09 05:40 → EDSTATUS 05-09 10:30 → CCU 05-09 11:22 → 2NO 05-11 12:41
PROVIDERS: ADMIT Thoracic Surgery (Cardiothoracic Vascular Surgery); ATTEND Thoracic Surgery (Cardiothoracic Vascular Surgery)
PROC: 021009W Bypass Coronary Artery, One Artery from Aorta with Autologous Venous Tissue, Open Approach (ICD-10-PCS; principal; 2021-05-09)
PROC: 02100Z9 Bypass Coronary Artery, One Artery from Left Internal Mammary, Open Approach (ICD-10-PCS; 2021-05-09)
PROC: 5A1221Z Performance of Cardiac Output, Continuous (ICD-10-PCS; 2021-05-09)
PROC: 06BQ0ZZ Excision of Left Saphenous Vein, Open Approach (ICD-10-PCS; 2021-05-09)
DX: I25.10 Atherosclerotic heart disease of native coronary artery without angina pectoris (principal); E78.2 Mixed hyperlipidemia; I25.5 Ischemic cardiomyopathy; E11.42 Type 2 diabetes mellitus with diabetic polyneuropathy; E11.51 Type 2 diabetes mellitus with diabetic peripheral angiopathy without gangrene; E11.65 Type 2 diabetes mellitus with hyperglycemia; Z79.899 Other long term (current) drug therapy; Z78.1 Physical restraint status; Z79.82 Long term (current) use of aspirin; Z79.84 Long term (current) use of oral hypoglycemic drugs; Z82.49 Family history of ischemic heart disease and other diseases of the circulatory system; Z87.891 Personal history of nicotine dependence; Z89.429 Acquired absence of other toe(s), unspecified side; Z01.818 Encounter for other preprocedural examination; Z20.822 Contact with and (suspected) exposure to COVID-19
CPT/HCPCS: 36416; 36430; 71045; 71046; 80048; 85025; 85027; 85610; 85730; 86850; 86900; 86901; 93005; 93010; 93798; 97139; J0171; J1100; J1642; J1644; J1815; J1885; J2001; J2250; J2405; J2440; J2704; J2720; J3010; J3370; J3475; J3480; P9045; Q0162; S0017; S0020; S0028; U0003; U0005

== ENCOUNTER 2022-08-05 15:11 | Emergency (ER) | payer BC ==
[2022-08-05 16:04] LABS: #Eosinphils 0.1 thou/uL (0.0-0.7); #Lymphocytes 1.7 thou/uL (1.20-3.40); #Monocytes 0.5 thou/uL (0.11-0.59); #Neutrophils 7.8 thou/uL (1.40-6.50); %Basophils 0.4 % (0.0-1.0); %Eosinophils 1.2 % (0.0-10.0); %Lymphocytes 16.4 % (21.0-51.0); %Monocytes 4.6 % (0.0-10.0); %Neutrophils 77.5 % (42.0-75.0); Hemoglobin 12.8 g/dL (14.0-18.0); Mean Corpuscular HGB CONC 34.7 g/dL (32.0-36.0); Mean Corpuscular Hemoglobin 30.6 pg (27.0-31.0); Mean Corpuscular Volume 88.1 fl (78.0-98.0); Mean Platelet Volume 7.1 fL (7.4-10.4); Platelet Count 308 10x3/uL (130-400); RBC Distribution Width 12.7 % (11.5-14.5); Red Blood Cell (RBC) Count 4.19 mill/uL (4.70-6.10); White Blood Cell (WBC) Count 10.1 10x3/uL (4.8-10.8)
[2022-08-05 16:31] LABS: ALT (SGPT) 38 U/L (8-55); AST (SGOT) 25 U/L (5-34); Albumin 4.3 g/dL (3.5-5.0); Alkaline Phosphatase 82 U/L (40-110); Anion Gap 16 mmol/L (10-20); BUN (Urea Nitrogen) 62 mg/dL (8.4-25.7); Bilirubin, Total Less than 0.2 mg/dL (0.2-1.2); Calc. Creatinine Clearance 0 mL/min (70-130); Calcium 9.8 mg/dL (7.8-10.44); Carbon Dioxide 25 mmol/L (22-29); Chloride 101 mmol/L (98-107); Estimated GFR 40; Glucose 238 mg/dL (70-105); Potassium 4.6 mmol/L (3.5-5.1); Protein, Total 7.3 g/dL (6.0-8.3); Sodium 137 mmol/L (136-145)
== END 2022-08-05 19:26 | disposition home or self-care (01) ==
LOC: ERS 15:11
DX: N17.9 Acute kidney failure, unspecified (principal); D63.8 Anemia in other chronic diseases classified elsewhere; E11.9 Type 2 diabetes mellitus without complications; Z79.84 Long term (current) use of oral hypoglycemic drugs; I10 Essential (primary) hypertension; Z79.899 Other long term (current) drug therapy; Z79.82 Long term (current) use of aspirin; F17.210 Nicotine dependence, cigarettes, uncomplicated
CPT/HCPCS: 36415; 80053; 85025; 96360